=== PATIENT | female | born 1945 | race Caucasian/White ===

== ENCOUNTER 2017-03-28 21:57 | Observation (INO) | payer MEDICARE ==
[~2017-03-28] VITALS: Ht 165.1 cm; Wt 99.1 kg
[~2017-03-28 21:57] MED LIST: CETI10TA22 PO; DULO30CA2 PO; ESOM20CA PO; FLUO40CA9 PO; HYDR-2758 PO; LISI-334 PO; MULT-129 PO; OMEG1CAP30 PO; OMEG1CAP6 PO; OMEP40CA2 PO; OXYC-328 PO; PANT40TA3 PO; RANI300T3 PO; RUTI1TAB PO; SIMV10TA3 PO; SIMV20TA3 PO
[2017-03-28] MEDS ORDERED: GLUCAGON,HUMAN RECOMBINANT 1 MG/ML VIAL. IV ONE (22:30)
[2017-03-28] MEDS ORDERED: fentaNYL PF VIAL 100 MCG/2 ML VIAL IV PRN (22:30)
[2017-03-28] MEDS ORDERED: IV NORMAL SALINE 1000ML BAG 1,000 ML IV SCH (22:39)
[2017-03-28] MEDS ORDERED: ONDANSETRON PF 4 MG/2 ML VIAL. IV PRN (22:45)
[2017-03-28] MEDS ORDERED: hydrALAZINE 20 MG/ML VIAL. IVP PRN (23:00)
--- NOTE | 2017-03-28 23:53 | PHYS DOC ---
Past Medical History Past Medical History: Depression, Fibromyalgia, GERD, Hypertension, Other Additional Past Medical Histor: FOOD BOLUSES, STRICTURE, PE, Heart Murmur Past Surgical History: Cholecystectomy, Hysterectomy Additional Past Surgical Histo: ESPHOGUS DILATION, LT ANKLE, RT ROTATOR CUFF Alcohol Use: None Drug Use: None Adult General Chief Complaint Chief Complaint: FOREIGN BODY HPI HPI Patient is a 71 year old female who presents with esophageal food impaction. The patient states about one hour prior to arrival she ate a hotdog and feels that it is caught in her throat. This has happened many times in the past and always requires endoscopy. She states she actually tried to smash up the hotdog to prevent such an incident. She has been unable to swallow her pain medication or any fluids since this occurred. Her product safety tester is Dr. Hargrove. Review of Systems Review of Systems Constitutional: Denies fever or chills HENT: Denies nasal congestion or sore throat Respiratory: Denies cough or shortness of breath Cardiovascular: Denies chest pain GI: Reports esophageal food bolus, Denies abdominal pain, nausea, vomiting : Denies dysuria or hematuria Musculoskeletal: Denies back pain or joint pain Integument: Denies rash Neurologic: Denies headache Current Medications Current Medications Current Medications Medications (Trade) Dose Ordered Sig/Micheline Start Time Stop Time Status Last Admin Dose Admin Fentanyl Citrate (Fentanyl 2ml Vial) 25 mcg PRN Q15MIN PRN 03/28/17 22:30 03/29/17 22:29 03/28/17 22:51 25 MCG Glucagon (Glucagen) 0.5 mg 1X ONCE 03/28/17 22:30 03/28/17 22:31 DC 03/28/17 22:25 0.5 MG Allergies Allergies Allergies Coded Allergies Type Severity Reaction Last Updated Verified No Known Medication Allergies Allergy Unknown 06/15/16 No Physical Exam Physical Exam Constitutional: Obese, no acute distress, non-toxic appearance. spitting secretions into a basin. HENT: Normocephalic, atraumatic, bilateral external ears normal, oropharynx moist, nose normal. airway patent. Eyes: conjunctiva normal, no discharge. Neck: supple, no stridor. Cardiovascular: RRR, no murmurs, no edema. Lungs & Thorax: LCTAB, no wheezing, no respiratory distress. Abdomen: soft, nontender, nondistended. Skin: Warm, dry, no erythema, no rash. Extremities: No tenderness, no edema. Neurologic: Alert and oriented X 3, no focal deficits noted. Psychologic: Affect normal, judgement normal, mood normal. Current Patient Data Vital Signs Vital Signs Date Time Temp Pulse Resp B/P (MAP) Pulse Ox O2 Delivery O2 Flow Rate FiO2 03/28/17 22:06 97.6 95 16 202/93 (129) 100 Room Air 97.6 EKG EKG [] Radiology/Procedures Radiology/Procedures [] Course & Med Decision Making Course & Med Decision Making Pertinent Labs and Imaging studies reviewed. (See chart for details) The patient presents with esophageal food impaction. She is not tolerating secretions. Gave glucagon with no change. She attempted to drink Coke and immediately regurgitated it. She has never successfully passed food bolus without endoscopy. Consulted with Dr. Cochran of GI who recommends admission to the hospital for endoscopy in the morning. We'll give IV fluids, pain medication , hydralazine for hypertension. Discussed with Dr. Bruner who agrees to admit to observation. The patient is admitted in stable condition. [] Dragon Disclaimer Dragon Disclaimer This electronic medical record was generated, in whole or in part, using a voice recognition dictation system. Departure Departure Impression: Primary Impression: Food impaction of esophagus Additional Impression: Accelerated hypertension Disposition: ADMITTED INPATIENT Condition: STABLE Problem Qualifiers Primary Impression: Food impaction of esophagus Encounter type: initial encounter Qualified Codes: T18.128A - Food in esophagus causing other injury, initial encounter NITZA PENN MD Mar 28, 2017 23:53
[2017-03-29] MEDS: MORPHINE SULFATE 2 MG/ML DISP.SYRIN. IV PRN ×3 (01:47→07:46)
[2017-03-29 03:04] VITALS: BP 167/75
[2017-03-29 03:05] VITALS: BP 167/75
--- NOTE | 2017-03-29 06:23 | HP ---
ADMIT DATE: 03/29/2017 CHIEF COMPLAINT: Food impaction. HISTORY OF PRESENT ILLNESS: The patient is a 71-year-old woman with past medical history of recurrent food impactions, presumably secondary to strictures, as she had previously dilations as well as hypertension and hypercholesterolemia. She presented after eating and having a sensation that food got stuck in her throat. She is able to swallow, however, is from [id number] regurgitating her saliva in large quantities. She denies any fevers or chills. Her blood pressure was slightly elevated, potentially secondary to pain in her left hip. She sustained a fall with hip injury, soft tissue only, about 4 days ago. This is on top of chronic fibromyalgia. She is requesting IV pain medication. PAST MEDICAL HISTORY: GERD; esophageal stricture, status post multiple dilations with history of food impaction; hypertension; depression and fibromyalgia. FAMILY HISTORY: Positive for heart disease and hypertension. No GI issues known. SOCIAL HISTORY: Lives with her . Never smoked. No toxic habits. ALLERGIES: No known drug allergies. MEDICATIONS: MAR reconciled with her home medications. REVIEW OF SYSTEMS: Positive as per HPI for swallowing difficulties as well as left hip pain. Rest of organ system review, however, is negative. PHYSICAL EXAMINATION: VITAL SIGNS: From today show a blood pressure of initially 145/63 with increased stress to 102/93, respiratory rate at 16 and heart rate at mid 90s. She is afebrile. GENERAL: This is a 71-year-old obese woman, alert and oriented, in no acute distress. HEENT: Shows no scleral icterus. NECK: Supple, without any abnormalities palpable. LUNGS: Clear. HEART: Regular rate and rhythm. ABDOMEN: Has positive bowel sounds. Minimal tenderness in the epigastric area. EXTREMITIES: Show no edema. SKIN: Warm, soft and dry, without any rash. LABORATORY DATA: CBC with a WBC of 5.6, hemoglobin 11.1 and platelets of 146,000, which is a bit below her typical baseline in the low 200s. Chemistries with a BUN and creatinine of 21 and 0.9, normal electrolytes, glucose at 124. She has been fluctuating at the upper end of normal up to 152 in the recent past. LFTs within normal limits. IMAGING STUDIES: None. ASSESSMENT AND PLAN: The patient is a 71-year-old woman with esophageal strictures and recurrent food impaction, who now presents with food bolus once again stuck in her esophagus. Dr. Cochran has been consulted and plans for EGD with food bolus removal have been made for in the morning. In the meantime, we will admit the patient to observation. Try and keep her comfortable from her hip pain as well as swallowing issues. She will receive morphine IV p.r.n. Her oral medications will be on hold. We will add hydralazine to control her blood pressure in the meantime. Oral medications will be restarted once food bolus is removed. AGATA HUDSON MD DR: UR/nts JOB#: [id number] / [id number] KATEY Mendoza MD [facility]ITALJewel
[2017-03-29 07:00] VITALS: BP 158/77
[2017-03-29] MEDS ORDERED: IV RINGERS,LACTATED 1000ML 1,000 ML IV SCH (08:04)
[2017-03-29] MEDS ORDERED: PROPOFOL 40 ML IV ONE (08:13)
[2017-03-29] MEDS ORDERED: LIDOCAINE 2% PF Vial for OR 5 ML VIAL. ONE (08:14)
[2017-03-29] MEDS ORDERED: LIDOCAINE 1% 1 ML SYRINGE. ID PRN (08:15)
[2017-03-29] MEDS ORDERED: MIDAZOLAM HCL/PF 2 MG/2 ML VIAL. IV PRN (08:15)
[2017-03-29] MEDS ORDERED: fentaNYL PF VIAL 100 MCG/2 ML VIAL IV PRN ×2 (08:15)
--- NOTE | 2017-03-29 08:25 | PDOC2 ---
CONSULT Date of Consult Date of Consult DATE: 03/29/17 TIME: 08:22 Reason for Consult Reason for Consult: Dysphagia/recurrent meat impaction Past Surgical History Past Surgical History: Cholecystectomy, Hysterectomy Current Problem List Problem List Problems Medical Problems: (1) Accelerated hypertension Status: Acute (2) Food impaction of esophagus Status: Acute Current Medications Current Medications Current Medications Glucagon (Glucagen) 0.5 mg 1X ONCE IV Last administered on 03/28/17 22:25; Start 03/28/17 at 22:30; Stop 03/28/17 at 22:31; Status DC Fentanyl Citrate (Fentanyl 2ml Vial) 25 mcg PRN Q15MIN PRN IV PAIN GREATER THAN 3/10 Last administered on 03/28/17 22:51; Start 03/28/17 at 22:30; Stop at 22:29 Ondansetron HCl (Zofran) 4 mg PRN Q8HRS PRN IV NAUSEA/VOMITING; Start 03/28/17 at 22:45; Stop 03/29/17 at 22:44 Morphine Sulfate 2 mg PRN Q2HR PRN IV SEVERE PAIN Last administered on 07:46; Start 03/28/17 at 22:45; Stop 03/29/17 at 22:44 Sodium Chloride 1,000 ml @ 100 mls/hr Q10H IV Last administered on 03/29/17 01 :47; Start 03/28/17 at 22:39; Stop 03/29/17 at 22:38 Hydralazine HCl (Apresoline) 10 mg PRN Q4HRS PRN IVP ELEVATED BP, SEE COMMENTS ; Start 03/28/17 at 23:00 Midazolam HCl (Versed) 2 mg PRN 1X PRN IV PRIOR TO PROCEDURE; Start 03/29/17 at 08:15; Stop 03/30/17 at 08:14 Fentanyl Citrate (Fentanyl 2ml Vial) 25 mcg PRN Q5MIN PRN IV X 2 DOSES FOR PAIN ; Start 03/29/17 at 08:15; Stop 03/30/17 at 08:14 Fentanyl Citrate (Fentanyl 2ml Vial) 50 mcg PRN Q5MIN PRN IV X 2 DOSES FOR PAIN ; Start 03/29/17 at 08:15; Stop 03/30/17 at 08:14 Ringer's Solution 1,000 ml @ 125 mls/hr Q8H IV Last administered on 03/29/17t 08:06; Start 03/29/17 at 08:04; Stop 03/29/17 at 20:03 Lidocaine HCl 2 ml 1X PRN PRN ID IV START; Start 03/29/17 at 08:15; Stop at 08:14 Propofol 40 ml @ As Directed STK-MED ONCE IV ; Start 03/29/17 at 08:13; Stop 03/29 at 08:14; Status DC Lidocaine HCl (Lidocaine Pf 2% Vial) 5 ml STK-MED ONCE .ROUTE ; Start 03/29/17 at 08:14; Stop 03/29/17 at 08:15; Status DC Active Scripts Active Reported [unknown] Nexium Capsule (Esomeprazole Magnesium) 20 Mg Capsule.dr 20 Mg PO DAILYAC Bioflex Tablet (Rutin/Hesp/Bioflav/C/Herb#196) 1 Each Tablet Unknown Dose PO One Daily For Women 50+ Adv Tb (Multivitamins-Min/Fa/Ginkgo) 1 Each Tablet 1 Each PO Simvastatin 20 Mg Tablet 1 Tab PO QHS Prozac (Fluoxetine Hcl) 40 Mg Capsule 1 Cap PO DAILY Lisinopril 20 Mg Tablet 1 Tab PO Cymbalta (Duloxetine Hcl) 30 Mg Capsule.dr 30 Mg PO BID Percocet 10-325 Mg Tablet (Oxycodone/Acetaminophen) 1 Each Tablet 1 Tab PO Allergies Allergies: Coded Allergies: No Known Medication Allergies (Unverified Allergy, Unknown, 03/29/17) Vitals VITALS Vital Signs Date Time Temp Pulse Resp B/P (MAP) Pulse Ox O2 Delivery O2 Flow Rate FiO2 03/29/17 08:02 Room Air 03/29/17 08:01 97.6 96 20 6 97.6 03/29/17 03:05 167/75 (105) Assessment/Plan Assessment/Plan Dysphagia- with recurrent food impaction. Most likely secondary to Schatzki ring Plan egd with fb removal and possible dilation Full note dictated JOSH HILLS MD Mar 29, 2017 08:24
[2017-03-29] MEDS ORDERED: PROPOFOL 20 ML IV ONE (08:31)
--- NOTE | 2017-03-29 08:38 | PDOC4 ---
Operative Note Operative Note EGD with foreign body removal Meds propofol per anesthesia Pre-op dx Schatzki ring with impacted hot dog S/p extraction hiatal hernia non-erosive gastritis Plan resume diet release when tolerates po JOSH HILLS MD Mar 29, 2017 08:38
[2017-03-29 09:53] LABS: BASO % 0 % (0-3); EOS % 0 % (0-3); HEMATOCRIT 35.1 % (36.0-47.0); HEMOGLOBIN 12.3 g/dL (12.0-15.5); LYMPH # 1.2 x10^3/uL (1.0-4.8); LYMPH % 17 % (24-48); MEAN CORPUSCULAR HEMOGLOBIN 30 pg (25-35); MEAN CORPUSCULAR HGB CONC 35 g/dL (31-37); MEAN CORPUSCULAR VOLUME 86 fL (79-100); MONO % 5 % (0-9); NEUT % 78 % (31-73); PLATELET COUNT 209 x10^3/uL (140-400); RED BLOOD COUNT 4.07 x10^6/uL (3.50-5.40); RED CELL DISTRIBUTION WIDTH 13.6 % (11.5-14.5); WHITE BLOOD COUNT 7.2 x10^3/uL (4.0-11.0)
[2017-03-29 10:10] LABS: CALCIUM 9.1 mg/dL (8.5-10.1); CREATININE 0.8 mg/dL (0.6-1.0); GFR 70.9; POTASSIUM 3.7 mmol/L (3.5-5.1)
--- NOTE | 2017-03-29 10:35 | PDOC ---
PROGRESS NOTES Chief Complaint Chief Complaint recurrent food impaction EGD showed Schatzki ring with impacted hot dog S/p extraction hiatal hernia non-erosive gastritis hypertension depression and fibromyalgia. GERD plan: fu with GI advance diet as per GI cont home meds labs tmr History of Present Illness History of Present Illness ROS: no fever, chills, sob or chest pain EGD today Vitals Vitals Vital Signs Date Time Temp Pulse Resp B/P (MAP) Pulse Ox O2 Delivery O2 Flow Rate FiO2 03/29/17 08:53 85 20 141/62 94 Room Air 03/29/17 08:38 98.1 98.1 Physical Exam General: Alert, Oriented X3, Cooperative Heart: Regular rate, Normal S1, Normal S2 Lungs: Clear Abdomen: Normal bowel sounds, Soft Extremities: No clubbing, No cyanosis Skin: No rashes Labs LABS Laboratory Tests Test 03/29/17 09:46 White Blood Count 7.2 x10^3/uL (4.0-11.0) Red Blood Count 4.07 x10^6/uL (3.50-5.40) Hemoglobin 12.3 g/dL (12.0-15.5) Hematocrit 35.1 % (36.0-47.0) Mean Corpuscular Volume 86 fL (79-100) Mean Corpuscular Hemoglobin 30 pg (25-35) Mean Corpuscular Hemoglobin Concent 35 g/dL (31-37) Red Cell Distribution Width 13.6 % (11.5-14.5) Platelet Count 209 x10^3/uL (140-400) Neutrophils (%) (Auto) 78 % (31-73) Lymphocytes (%) (Auto) 17 % (24-48) Monocytes (%) (Auto) 5 % (0-9) Eosinophils (%) (Auto) 0 % (0-3) Basophils (%) (Auto) 0 % (0-3) Neutrophils # (Auto) 5.7 x10^3uL (1.8-7.7) Lymphocytes # (Auto) 1.2 x10^3/uL (1.0-4.8) Monocytes # (Auto) 0.3 x10^3/uL (0.0-1.1) Eosinophils # (Auto) 0.0 x10^3/uL (0.0-0.7) Basophils # (Auto) 0.0 x10^3/uL (0.0-0.2) Sodium Level 140 mmol/L (136-145) Potassium Level 3.7 mmol/L (3.5-5.1) Chloride Level 103 mmol/L (98-107) Carbon Dioxide Level 27 mmol/L (21-32) Anion Gap 10 (6-14) Blood Urea Nitrogen 19 mg/dL (7-20) Creatinine 0.8 mg/dL (0.6-1.0) Estimated GFR (Cockcroft-Gault) 70.9 Glucose Level 139 mg/dL (70-99) Calcium Level 9.1 mg/dL (8.5-10.1) Assessment and Plan Assessmemt and Plan Problems Medical Problems: (1) Accelerated hypertension Status: Acute (2) Food impaction of esophagus Status: Acute Problems: Comment Review of Relevant I have reviewed the following items pili (where applicable) has been applied. Labs Laboratory Tests Test 03/29/17 09:46 White Blood Count 7.2 x10^3/uL (4.0-11.0) Red Blood Count 4.07 x10^6/uL (3.50-5.40) Hemoglobin 12.3 g/dL (12.0-15.5) Hematocrit 35.1 % (36.0-47.0) Mean Corpuscular Volume 86 fL (79-100) Mean Corpuscular Hemoglobin 30 pg (25-35) Mean Corpuscular Hemoglobin Concent 35 g/dL (31-37) Red Cell Distribution Width 13.6 % (11.5-14.5) Platelet Count 209 x10^3/uL (140-400) Neutrophils (%) (Auto) 78 % (31-73) Lymphocytes (%) (Auto) 17 % (24-48) Monocytes (%) (Auto) 5 % (0-9) Eosinophils (%) (Auto) 0 % (0-3) Basophils (%) (Auto) 0 % (0-3) Neutrophils # (Auto) 5.7 x10^3uL (1.8-7.7) Lymphocytes # (Auto) 1.2 x10^3/uL (1.0-4.8) Monocytes # (Auto) 0.3 x10^3/uL (0.0-1.1) Eosinophils # (Auto) 0.0 x10^3/uL (0.0-0.7) Basophils # (Auto) 0.0 x10^3/uL (0.0-0.2) Sodium Level 140 mmol/L (136-145) Potassium Level 3.7 mmol/L (3.5-5.1) Chloride Level 103 mmol/L (98-107) Carbon Dioxide Level 27 mmol/L (21-32) Anion Gap 10 (6-14) Blood Urea Nitrogen 19 mg/dL (7-20) Creatinine 0.8 mg/dL (0.6-1.0) Estimated GFR (Cockcroft-Gault) 70.9 Glucose Level 139 mg/dL (70-99) Calcium Level 9.1 mg/dL (8.5-10.1) Laboratory Tests Test 03/29/17 09:46 White Blood Count 7.2 x10^3/uL (4.0-11.0) Red Blood Count 4.07 x10^6/uL (3.50-5.40) Hemoglobin 12.3 g/dL (12.0-15.5) Hematocrit 35.1 % (36.0-47.0) Mean Corpuscular Volume 86 fL (79-100) Mean Corpuscular Hemoglobin 30 pg (25-35) Mean Corpuscular Hemoglobin Concent 35 g/dL (31-37) Red Cell Distribution Width 13.6 % (11.5-14.5) Platelet Count 209 x10^3/uL (140-400) Neutrophils (%) (Auto) 78 % (31-73) Lymphocytes (%) (Auto) 17 % (24-48) Monocytes (%) (Auto) 5 % (0-9) Eosinophils (%) (Auto) 0 % (0-3) Basophils (%) (Auto) 0 % (0-3) Neutrophils # (Auto) 5.7 x10^3uL (1.8-7.7) Lymphocytes # (Auto) 1.2 x10^3/uL (1.0-4.8) Monocytes # (Auto) 0.3 x10^3/uL (0.0-1.1) Eosinophils # (Auto) 0.0 x10^3/uL (0.0-0.7) Basophils # (Auto) 0.0 x10^3/uL (0.0-0.2) Sodium Level 140 mmol/L (136-145) Potassium Level 3.7 mmol/L (3.5-5.1) Chloride Level 103 mmol/L (98-107) Carbon Dioxide Level 27 mmol/L (21-32) Anion Gap 10 (6-14) Blood Urea Nitrogen 19 mg/dL (7-20) Creatinine 0.8 mg/dL (0.6-1.0) Estimated GFR (Cockcroft-Gault) 70.9 Glucose Level 139 mg/dL (70-99) Calcium Level 9.1 mg/dL (8.5-10.1) Medications Current Medications Glucagon (Glucagen) 0.5 mg 1X ONCE IV Last administered on 03/28/17 22:25; Start 03/28/17 at 22:30; Stop 03/28/17 at 22:31; Status DC Fentanyl Citrate (Fentanyl 2ml Vial) 25 mcg PRN Q15MIN PRN IV PAIN GREATER THAN 3/10 Last administered on 03/28/17 22:51; Start 03/28/17 at 22:30; Stop at 22:29 Ondansetron HCl (Zofran) 4 mg PRN Q8HRS PRN IV NAUSEA/VOMITING; Start 03/28/17 at 22:45; Stop 03/29/17 at 22:44 Morphine Sulfate 2 mg PRN Q2HR PRN IV SEVERE PAIN Last administered on 07:46; Start 03/28/17 at 22:45; Stop 03/29/17 at 22:44 Sodium Chloride 1,000 ml @ 100 mls/hr Q10H IV Last administered on 03/29/17 01 :47; Start 03/28/17 at 22:39; Stop 03/29/17 at 22:38 Hydralazine HCl (Apresoline) 10 mg PRN Q4HRS PRN IVP ELEVATED BP, SEE COMMENTS ; Start 03/28/17 at 23:00 Midazolam HCl (Versed) 2 mg PRN 1X PRN IV PRIOR TO PROCEDURE; Start 03/29/17 at 08:15; Stop 03/30/17 at 08:14 Fentanyl Citrate (Fentanyl 2ml Vial) 25 mcg PRN Q5MIN PRN IV X 2 DOSES FOR PAIN ; Start 03/29/17 at 08:15; Stop 03/30/17 at 08:14 Fentanyl Citrate (Fentanyl 2ml Vial) 50 mcg PRN Q5MIN PRN IV X 2 DOSES FOR PAIN ; Start 03/29/17 at 08:15; Stop 03/30/17 at 08:14 Ringer's Solution 1,000 ml @ 125 mls/hr Q8H IV Last administered on 03/29/17t 08:06; Start 03/29/17 at 08:04; Stop 03/29/17 at 20:03 Lidocaine HCl 2 ml 1X PRN PRN ID IV START; Start 03/29/17 at 08:15; Stop at 08:14 Propofol 40 ml @ As Directed STK-MED ONCE IV ; Start 03/29/17 at 08:13; Stop 03/29 at 08:14; Status DC Lidocaine HCl (Lidocaine Pf 2% Vial) 5 ml STK-MED ONCE .ROUTE ; Start 03/29/17 at 08:14; Stop 03/29/17 at 08:15; Status DC Propofol 20 ml @ As Directed STK-MED ONCE IV ; Start 03/29/17 at 08:31; Stop 03/29 at 08:32; Status DC Active Scripts Active Reported [unknown] Nexium Capsule (Esomeprazole Magnesium) 20 Mg Capsule.dr 20 Mg PO DAILYAC Bioflex Tablet (Rutin/Hesp/Bioflav/C/Herb#196) 1 Each Tablet Unknown Dose PO One Daily For Women 50+ Adv Tb (Multivitamins-Min/Fa/Ginkgo) 1 Each Tablet 1 Each PO Simvastatin 20 Mg Tablet 1 Tab PO QHS Prozac (Fluoxetine Hcl) 40 Mg Capsule 1 Cap PO DAILY Lisinopril 20 Mg Tablet 1 Tab PO Cymbalta (Duloxetine Hcl) 30 Mg Capsule. 30 Mg PO BID Percocet 10-325 Mg Tablet (Oxycodone/Acetaminophen) 1 Each Tablet 1 Tab PO Vitals/I & O Vital Sign - Last 24 Hours 03/28/17 03/28/17 03/29/17 03/29/17 22:06 22:51 00:45 01:47 Temp 97.6 97.6 Pulse 95 Resp 16 20 17 B/P (MAP) 202/93 (129) Pulse Ox 100 96 96 O2 Delivery Room Air Room Air Room Air Room Air 03/29/17 03/29/17 03/29/17 03/29/17 03:04 03:05 03:45 04:15 Temp 98.6 98.6 98.6 98.6 Pulse 93 93 Resp 18 18 16 15 B/P (MAP) 167/75 (105) 167/75 (105) Pulse Ox 94 94 94 94 O2 Delivery Room Air Room Air Room Air Room Air 03/29/17 03/29/17 03/29/17 03/29/17 07:00 07:45 07:46 08:01 Temp 97.5 97.6 97.5 97.6 Pulse 95 96 Resp 20 20 B/P (MAP) 158/77 (104) Pulse Ox 96 6 O2 Delivery Room Air Room Air Room Air 03/29/17 03/29/17 03/29/17 08:02 08:38 08:53 Temp 98.1 98.1 Pulse 96 85 Resp 20 20 B/P (MAP) 138/65 141/62 Pulse Ox 94 O2 Delivery Room Air Room Air Room Air Intake and Output 03/29/17 03/29/17 03/30/17 15:00 23:00 07:00 Intake Total 500 ml Balance 500 ml ALEXANDRIA NEW MD Mar 29, 2017 10:35
[2017-03-29] MEDS ORDERED: MORPHINE SULFATE 2 MG/ML DISP.SYRIN. IV PRN (10:45)
[2017-03-29] MEDS ORDERED: traMADol 50 MG TABLET PO PRN (10:45)
[2017-03-29] MEDS ORDERED: ONDANSETRON PF 4 MG/2 ML VIAL. IV PRN (10:45)
[2017-03-29] MEDS ORDERED: ACETAMINOPHEN 325 MG TABLET. PO PRN (10:45)
[2017-03-29] MEDS ORDERED: oxyCODONE/APAP 10/325 1 TAB TABLET PO PRN (10:45)
[2017-03-29] MEDS ORDERED: DOCUSATE SODIUM 100 MG CAPSULE. PO PRN (10:45)
[2017-03-29] MEDS ORDERED: hydrALAZINE 20 MG/ML VIAL. IVP PRN (10:45)
[2017-03-29 11:00] VITALS: BP 189/85
--- NOTE | 2017-03-29 11:06 | PDOC3 ---
Discharge Summary [facility] Date of Admission: Mar 28, 2017 Discharge Date: Mar 29, 2017 Admitting Diagnosis recurrent food impaction EGD showed Schatzki ring with impacted hot dog S/p extraction hiatal hernia non-erosive gastritis hypertension depression and fibromyalgia. GERD Problems: Final Diagnosis CONSULTS GI Procedures egd Brief Hospital Course Ms. Cifuentes is a 71 old f, WITH H/o food impaction, came here for dysphagia, she ate some hot dog and then cannot swallow anything down. EGD showed EGD Schatzki ring with impacted hot dog S/p extraction, hiatal hernia, non-erosive gastritis. She eats well post EGD. ADVANCE diet. ok to dc as per gi dc time 35min dc home , fu with GI, may need esophagous dilation. Patient History: Patient reports no known family medical history. Problems: Disposition home CONDITION AT DISCHARGE: Improved Diet gi soft Scheduled Duloxetine Hcl (Cymbalta), 30 MG PO BID, (Reported) Esomeprazole Magnesium (Nexium Capsule), 20 MG PO DAILYAC, (Reported) Fluoxetine Hcl (Prozac), 1 CAP PO DAILY, (Reported) Simvastatin (Simvastatin), 1 TAB PO QHS, (Reported) Miscellaneous Medications Lisinopril (Lisinopril), 1 TAB PO, (Reported) Multivitamins-Min/Fa/Ginkgo (One Daily For Women 50+ Adv Tb), 1 EACH PO, ( Reported) Oxycodone/Apap 10-325 (Percocet 10-325 Mg Tablet), 1 TAB PO, (Reported) Rutin/Hesp/Bioflav/C/Herb#196 (Bioflex Tablet), Unknown Dose PO, (Reported) [unknown], (Reported) Follow Up gi in 2 weeks ALEXANDRIA NEW MD Mar 29, 2017 11:06
[2017-03-29] MEDS ORDERED: DULoxetine HCL 30 MG CAPSULE.DR PO SCH (11:30)
[2017-03-29] MEDS ORDERED: LISINOPRIL 20 MG TABLET PO SCH (11:30)
[2017-03-29] MEDS ORDERED: PANTOPRAZOLE 40 MG TABLET.DR. PO SCH (11:30)
[2017-03-29] MEDS ORDERED: FLUoxetine HCL 20 MG CAPSULE PO SCH (11:30)
--- NOTE | 2017-03-29 12:01 | CONS ---
DATE OF CONSULTATION: 03/29/2017 REASON FOR CONSULTATION: Dysphagia, meat impaction. HISTORY OF PRESENT ILLNESS: This is a 71-year-old female with past medical history significant for esophageal stricture/Schatzki's ring, reflux, constipation, fibromyalgia, hypertension, osteoarthrosis, status post partial hysterectomy, cholecystectomy, right rotator cuff repair and left ankle fracture, seen with recurrent meat impaction which occurred yesterday with most likely a hotdog per the patient's recollection. She is edentulous and has difficulties with chewing of her food. As she is unable to handle her oral secretions, she was then brought to the hospital here and is here for meat disimpaction and possible dilatation. PAST MEDICAL HISTORY: Esophageal stricture, GERD, Schatzki's ring, fibromyalgia, hypertension, arthritis, depression, partial hysterectomy, cholecystectomy, rotator cuff repair and left ankle fracture. MEDICATIONS: Presently include Cymbalta, Nexium, Prozac, lisinopril, multivitamin, oxycodone, and simvastatin. ALLERGIES: None. FAMILY AND SOCIAL HISTORY: She is retired, does not smoke or drink. REVIEW OF SYSTEMS: Per records. PHYSICAL EXAMINATION: GENERAL: Reveals well-nourished, well-developed female. VITAL SIGNS: Temperature is 97.6, pulse 96, respiratory rate is 20, blood pressure is 167/75. HEENT: Reveals normocephalic and atraumatic head. Pupils and extraocular movements not tested. Sclerae anicteric. NECK: Supple. LUNGS: Clear. CARDIOVASCULAR: Reveals S1, S2 without S3, S4 or appreciable murmur. No crepitus on palpation of the chest. ABDOMEN: Soft abdomen, normal bowel sounds, without appreciable hepatosplenomegaly, with multiple surgical incisions. EXTREMITIES: Reveals no cyanosis, clubbing, edema. LABORATORY STUDIES: None. IMPRESSION: Dysphagia, most likely secondary to recurrent impaction. PLAN: EGD with possible biopsy, dilatation of foreign body and removal of it. I discussed with the patient including risk of hemorrhage or perforation. She is willing to proceed at this time. I would like to thank Dr. Bruner for allowing us to consult and participate in this patient's care. JOSH HILLS MD DR: CINTHIA/jose JOB#: [id number] / [id number] AGATA Harris MD
[2017-03-29] MEDS ORDERED: SIMVASTATIN 20 MG TABLET PO SCH (21:00)
== END 2017-03-29 13:58 | disposition home or self-care (01) ==
LOC: ER 21:57 → 5 SOUTH 22:35
PROVIDERS: ADMIT Internal Medicine Hematology & Oncology; ATTEND Internal Medicine Hematology & Oncology
DX: T18.128A Food in esophagus causing other injury, initial encounter (principal); K22.2 Esophageal obstruction; K21.9 Gastro-esophageal reflux disease without esophagitis; M79.7 Fibromyalgia; I10 Essential (primary) hypertension; M19.90 Unspecified osteoarthritis, unspecified site; F32.9 Major depressive disorder, single episode, unspecified; K44.9 Diaphragmatic hernia without obstruction or gangrene; K29.70 Gastritis, unspecified, without bleeding; E78.00 Pure hypercholesterolemia, unspecified; X58.XXXA Exposure to other specified factors, initial encounter; Y93.89 Activity, other specified; Y99.8 Other external cause status; Y92.89 Other specified places as the place of occurrence of the external cause; Z82.49 Family history of ischemic heart disease and other diseases of the circulatory system; Z90.710 Acquired absence of both cervix and uterus
CPT/HCPCS: 36415; 43247; 80048; 85025; 96374; 96375; 96376; 99285; G0378; J1610; J2270; J2704; J3010; J7030; G0379; J7120; J2001

== ENCOUNTER 2017-04-21 07:22 | Emergency (ER) | payer MEDICARE ==
--- NOTE | 2017-04-21 07:43 | PHYS DOC ---
Past Medical History Past Medical History: Depression, Fibromyalgia, GERD, Hypertension, Other Additional Past Medical Histor: FOOD BOLUSES, STRICTURE, PE, Heart Murmur Past Surgical History: Cholecystectomy, Hysterectomy Additional Past Surgical Histo: ESPHOGUS DILATION, LT ANKLE, RT ROTATOR CUFF Alcohol Use: None Drug Use: None Adult General Chief Complaint Chief Complaint: DIFFICULTY SWALLOWING HPI HPI Patient is a 71 year old female with history of hypertension, fibromyalgia, sciatic nerve pain, depression, esophageal strictures, who presents today with a football nose. Patient states she took 2 oxycodone tablets this morning for her sciatic nerve pain and she feels they are stuck in her throat. She states she cannot swallow anything including her own saliva. She states she has hx of esophageal strictures and food boluses, she states she usually has to have endoscopies for her food bolus and she is requesting a GI doctor to come and remove the food bolus. She states she prefers not to be given glucagon because it does not work for her. She is spitting in a bucket. Review of Systems Review of Systems Constitutional: Denies fever or chills [] Eyes: Denies change in visual acuity, redness, or eye pain [] HENT: Denies nasal congestion or sore throat [] Respiratory: Denies cough or shortness of breath [] Cardiovascular: No additional information not addressed in HPI [] GI: food bolus : Denies dysuria or hematuria [] Musculoskeletal: Denies back pain or joint pain [] Integument: Denies rash or skin lesions [] Neurologic: Denies headache, focal weakness or sensory changes [] Current Medications Current Medications Current Medications Medications (Trade) Dose Ordered Sig/[facility] Start Time Stop Time Status Last Admin Dose Admin Fentanyl Citrate (Fentanyl 2ml Vial) 50 mcg 1X ONCE 04/21/17 08:15 04/21/17 08:16 DC 04/21/17 08:11 50 MCG Glucagon (Glucagen) 0.5 mg 1X ONCE 04/21/17 08:30 04/21/17 08:31 DC 04/21/17 08:39 0.5 MG Allergies Allergies Allergies Coded Allergies Type Severity Reaction Last Updated Verified No Known Medication Allergies Allergy Unknown 03/29/17 No Physical Exam Physical Exam Constitutional: Well developed, well nourished, no acute distress, non-toxic appearance. [] HENT: Normocephalic, atraumatic, bilateral external ears normal, oropharynx moist, no oral exudates, nose normal. Airway is patent Eyes: PERRLA, EOMI, conjunctiva normal, no discharge. [] Neck: Normal range of motion, no tenderness, supple, no stridor. [] Cardiovascular:Heart rate regular rhythm, no murmur [] Lungs & Thorax: Bilateral breath sounds clear to auscultation [] Abdomen: Bowel sounds normal, soft, no tenderness, no masses, no pulsatile masses. [] Skin: Warm, dry, no erythema, no rash. [] Back: No tenderness, no CVA tenderness. [] Extremities: No tenderness, no cyanosis, no clubbing, ROM intact, no edema. [] Neurologic: Alert and oriented X 3, normal motor function, normal sensory function, no focal deficits noted. [] Psychologic: Affect normal, judgement normal, mood normal. [] Current Patient Data Vital Signs Vital Signs Date Time Temp Pulse Resp B/P (MAP) Pulse Ox O2 Delivery O2 Flow Rate FiO2 04/21/17 08:12 92 16 162/61 (94) 95 Room Air 04/21/17 07:33 98.4 98.4 Lab Values Laboratory Tests Test 04/21/17 08:07 White Blood Count 3.8 x10^3/uL (4.0-11.0) L Red Blood Count 3.73 x10^6/uL (3.50-5.40) Hemoglobin 11.1 g/dL (12.0-15.5) L Hematocrit 33.4 % (36.0-47.0) L Mean Corpuscular Volume 89 fL (79-100) Mean Corpuscular Hemoglobin 30 pg (25-35) Mean Corpuscular Hemoglobin Concent 33 g/dL (31-37) Red Cell Distribution Width 13.1 % (11.5-14.5) Platelet Count 184 x10^3/uL (140-400) Neutrophils (%) (Auto) 75 % (31-73) H Lymphocytes (%) (Auto) 14 % (24-48) L Monocytes (%) (Auto) 8 % (0-9) Eosinophils (%) (Auto) 2 % (0-3) Basophils (%) (Auto) 0 % (0-3) Neutrophils # (Auto) 2.9 x10^3uL (1.8-7.7) Lymphocytes # (Auto) 0.6 x10^3/uL (1.0-4.8) L Monocytes # (Auto) 0.3 x10^3/uL (0.0-1.1) Eosinophils # (Auto) 0.1 x10^3/uL (0.0-0.7) Basophils # (Auto) 0.0 x10^3/uL (0.0-0.2) Prothrombin Time 12.5 SEC (11.7-14.0) Prothrombin Time INR 1.0 (0.8-1.1) PTT 28 SEC (24-38) Sodium Level 138 mmol/L (136-145) Potassium Level 4.4 mmol/L (3.5-5.1) Chloride Level 103 mmol/L (98-107) Carbon Dioxide Level 28 mmol/L (21-32) Anion Gap 7 (6-14) Blood Urea Nitrogen 16 mg/dL (7-20) Creatinine 1.0 mg/dL (0.6-1.0) Estimated GFR (Cockcroft-Gault) 54.8 Glucose Level 161 mg/dL (70-99) H Calcium Level 8.9 mg/dL (8.5-10.1) Laboratory Tests 04/21/17 08:07 Laboratory Tests 04/21/17 08:07 EKG EKG [] Radiology/Procedures Radiology/Procedures [] Course & Med Decision Making Course & Med Decision Making Pertinent Labs and Imaging studies reviewed. (See chart for details) This is a 71-year-old female patient presenting today complaining of 2 tablets of oxycodone stuck in her throat at 7 am. Patient has history of esophageal strictures with fluid boluses. She states she typically has to have an endoscopy. She requesting GI doctor to come and do an endoscopy. She is refusing glucagon stating it is not going to work for her. She is spitting in a bucket. She states last time she was kept in the Ed for hours before GI did an endoscopy and this time she does not want to be kept in the Ed for hours. 07:[address] Smith GI doctor. He requested patient to be given Water to drink to see if it dissolves the pill. He states he will come back to the ED after a couple hours. I did request patient to be admitted and he can follow-up with patient as an admit to cut our door to admission times. He states patient does not need to be admitted he will come to the Ed after a couple hours. Gave patient information from Dr. Almodovar. She accepted to take Glucagon and sips of water. Later patient stated she wants to be discharged. 09:12 We started to get her paperwork ready she stated the water came back up and she does not want to leave she wants to be seen by GI for endoscopy. 09:[address] Almodovar. He states he called the GI team and patient will be scoped. Patient was transferred to GI lab for endoscopy. Dragon Disclaimer Dragon Disclaimer This electronic medical record was generated, in whole or in part, using a voice recognition dictation system. Departure Departure Impression: Primary Impression: Food impaction of esophagus Disposition: 01 HOME, SELF-CARE Condition: STABLE Referrals: KATEY PAUL MD (PCP) Problem Qualifiers Primary Impression: Food impaction of esophagus Encounter type: initial encounter Qualified Codes: T18.128A - Food in esophagus causing other injury, initial encounter LASHAUN RICHARDSON [employer]OT[employer]IC LABORATORY TECHNICIAN Apr 21, 2017 07:43
[2017-04-21] MEDS ORDERED: fentaNYL PF VIAL 100 MCG/2 ML VIAL IV ONE ×4 (08:15→10:17)
[2017-04-21] MEDS ORDERED: GLUCAGON,HUMAN RECOMBINANT 1 MG/ML VIAL. IM ONE (08:30)
[2017-04-21 08:32] LABS: BASO % 0 % (0-3); EOS % 2 % (0-3); HEMATOCRIT 33.4 % (36.0-47.0); HEMOGLOBIN 11.1 g/dL (12.0-15.5); LYMPH # 0.6 x10^3/uL (1.0-4.8); LYMPH % 14 % (24-48); MEAN CORPUSCULAR HEMOGLOBIN 30 pg (25-35); MEAN CORPUSCULAR HGB CONC 33 g/dL (31-37); MEAN CORPUSCULAR VOLUME 89 fL (79-100); MONO % 8 % (0-9); NEUT % 75 % (31-73); PLATELET COUNT 184 x10^3/uL (140-400); RED BLOOD COUNT 3.73 x10^6/uL (3.50-5.40); RED CELL DISTRIBUTION WIDTH 13.1 % (11.5-14.5); WHITE BLOOD COUNT 3.8 x10^3/uL (4.0-11.0)
[2017-04-21 08:36] LABS: CALCIUM 8.9 mg/dL (8.5-10.1); GFR 54.8; POTASSIUM 4.4 mmol/L (3.5-5.1)
[2017-04-21 08:48] LABS: PROTHROMBIN TIME PATIENT 12.5 SEC (11.7-14.0)
[2017-04-21] MEDS ORDERED: MIDAZOLAM HCL/PF 5 MG/5 ML VIAL. ONE (09:38)
[2017-04-21] MEDS ORDERED: fentaNYL PF VIAL 100 MCG/2 ML VIAL ONE (09:39)
[2017-04-21] MEDS ORDERED: diphenhydrAMINE 50 MG/ML VIAL ONE (09:47)
[2017-04-21] MEDS ORDERED: MIDAZOLAM HCL/PF 5 MG/5 ML VIAL. IV ONE ×4 (10:07→10:17)
[2017-04-21] MEDS ORDERED: diphenhydrAMINE 50 MG/ML VIAL IV ONE ×2 (10:07→10:13)
--- NOTE | 2017-04-21 10:08 | PDOC2 ---
GI CONSULT HPI: HPI: 71 WF with history of esophageal stricture, prior food impaction and two prior EGDs within last 2 months. Now with some meat stuck last night and then pills stuck this morning. Unable to swallow liquid. Mild chest discomfort. No fever , cough, bleeding etc PMH: PMH: HTN GERD with stricture fibromyalgia cholecystectomy hysterectomy ROS: GEN: Denies fevers, chills, sweats HEENT: Denies blurred vision, sore throat CV: Denies chest pain RESP: Denies shortness of air, cough GI: Per HPI : Denies hematuria, dysuria ENDO: Denies weight changes NEURO: Denies confusion, dizziness MSK: Denies weakness, joint pain/swelling SKIN: Denies jaundice, pruritus Vitals: Vitals: Vital Signs Date Time Temp Pulse Resp B/P (MAP) Pulse Ox O2 Delivery O2 Flow Rate FiO2 04/21/17 09:31 95 18 141/62 (88) 97 Room Air 04/21/17 07:33 98.4 98.4 Labs: Labs: Laboratory Tests Test 04/21/17 08:07 White Blood Count 3.8 x10^3/uL (4.0-11.0) Red Blood Count 3.73 x10^6/uL (3.50-5.40) Hemoglobin 11.1 g/dL (12.0-15.5) Hematocrit 33.4 % (36.0-47.0) Mean Corpuscular Volume 89 fL (79-100) Mean Corpuscular Hemoglobin 30 pg (25-35) Mean Corpuscular Hemoglobin Concent 33 g/dL (31-37) Red Cell Distribution Width 13.1 % (11.5-14.5) Platelet Count 184 x10^3/uL (140-400) Neutrophils (%) (Auto) 75 % (31-73) Lymphocytes (%) (Auto) 14 % (24-48) Monocytes (%) (Auto) 8 % (0-9) Eosinophils (%) (Auto) 2 % (0-3) Basophils (%) (Auto) 0 % (0-3) Neutrophils # (Auto) 2.9 x10^3uL (1.8-7.7) Lymphocytes # (Auto) 0.6 x10^3/uL (1.0-4.8) Monocytes # (Auto) 0.3 x10^3/uL (0.0-1.1) Eosinophils # (Auto) 0.1 x10^3/uL (0.0-0.7) Basophils # (Auto) 0.0 x10^3/uL (0.0-0.2) Prothrombin Time 12.5 SEC (11.7-14.0) Prothromb Time International Ratio 1.0 (0.8-1.1) Activated Partial Thromboplast Time 28 SEC (24-38) Sodium Level 138 mmol/L (136-145) Potassium Level 4.4 mmol/L (3.5-5.1) Chloride Level 103 mmol/L (98-107) Carbon Dioxide Level 28 mmol/L (21-32) Anion Gap 7 (6-14) Blood Urea Nitrogen 16 mg/dL (7-20) Creatinine 1.0 mg/dL (0.6-1.0) Estimated GFR (Cockcroft-Gault) 54.8 Glucose Level 161 mg/dL (70-99) Calcium Level 8.9 mg/dL (8.5-10.1) Allergies: Coded Allergies: No Known Medication Allergies (Unverified Allergy, Unknown, 03/29/17) Medications: Current Medications Medications (Trade) Dose Ordered Sig/[facility] Route PRN Reason Start Time Stop Time Status Last Admin Dose Admin Fentanyl Citrate (Fentanyl 2ml Vial) 50 mcg 1X ONCE IV 04/21/17 08:15 04/21/17 08:16 DC 04/21/17 08:11 Glucagon (Glucagen) 0.5 mg 1X ONCE IM 04/21/17 08:30 04/21/17 08:31 DC 04/21/17 08:39 PE: GEN: NAD HEENT: Atraumatic, PERRLA- edenulous LUNGS: CTAB HEART: RRR, no murmurs ABD: NABS, S/ND/NT, no masses EXTREMITY: No edema SKIN: No rashes, no jaundice NEURO/PSYCH: A & O 3 A/P: A/P: dysphagia with food and pill obstruction this AM- similar to prior episodes- known to have GERD with Schatzki's ring stricture- last food bolus removal was 03/29/2017 Plan- EGD today pay more attention to food (soft diet- no meat or mechanically ground) , chewing, pills etc to avoid obstruction BRANDI ELIZONDO MD Apr 21, 2017 10:08
[2017-04-21 10:51] VITALS: BP 111/74
[2017-04-21] MEDS ORDERED: IV RINGERS,LACTATED 1000ML 1,000 ML IV ONE (11:30)
== END 2017-04-21 09:28 | disposition home or self-care (01) ==
LOC: ER 07:22
DX: T18.128A Food in esophagus causing other injury, initial encounter (principal); F32.9 Major depressive disorder, single episode, unspecified; M79.7 Fibromyalgia; K21.9 Gastro-esophageal reflux disease without esophagitis; I10 Essential (primary) hypertension; Z90.710 Acquired absence of both cervix and uterus; Z90.49 Acquired absence of other specified parts of digestive tract; X58.XXXA Exposure to other specified factors, initial encounter; Y93.89 Activity, other specified; Y92.89 Other specified places as the place of occurrence of the external cause; Y99.8 Other external cause status
CPT/HCPCS: 36415; 80048; 85025; 85610; 85730; 96361; 96372; 96374; 96375; 96376; 99284; J1200; J1610; J2250; J3010; J7120

== ENCOUNTER 2017-06-23 11:48 | Emergency (ER) | payer MEDICARE ==
[~2017-06-23] VITALS: Ht 165.1 cm; Wt 97.1 kg
--- NOTE | 2017-06-23 12:26 | PHYS DOC ---
Past Medical History Past Medical History: Depression, Fibromyalgia, GERD, Hypertension, Other Additional Past Medical Histor: FOOD BOLUSES, STRICTURE, PE, Heart Murmur Past Surgical History: Cholecystectomy, Hysterectomy Additional Past Surgical Histo: ESPHOGUS DILATION, LT ANKLE, RT ROTATOR CUFF Alcohol Use: None Drug Use: None Adult General Chief Complaint Chief Complaint: CHEST PAIN HPI HPI Patient is a 72 year old female with history of fibromyalgia, hypertension, depression, who presents today complaining of a sharp 8 out of 10 bilateral upper chest pain intermittent in nature worse on deep breaths and exertion with dizziness and nausea that began this morning when she was walking in [employer]. Patient states her pain is not as bad laying down in bed. Patient states she is under a lot of stress, she states her is admitted on the second floor with dialysis issues. Review of Systems Review of Systems Constitutional: Denies fever or chills [] Eyes: Denies change in visual acuity, redness, or eye pain [] HENT: Denies nasal congestion or sore throat [] Respiratory: Denies cough or shortness of breath [] Cardiovascular: Chest pain GI: Reports nausea with no vomiting. Denies abdominal pain, bloody stools or diarrhea [] : Denies dysuria or hematuria [] Musculoskeletal: Denies back pain or joint pain [] Integument: Denies rash or skin lesions [] Neurologic: Denies headache, focal weakness or sensory changes [] All other systems were reviewed and found to be within normal limits, except as documented in this note. Current Medications Current Medications Current Medications Medications (Trade) Dose Ordered Sig/[facility] Start Time Stop Time Status Last Admin Dose Admin Aspirin (Melodie Aspirin) 325 mg 1X ONCE 06/23/17 12:30 06/23/17 12:31 DC 06/23/17 12:33 325 MG Famotidine (Pepcid Vial) 20 mg 1X ONCE 06/23/17 12:30 06/23/17 12:31 DC 06/23/17 12:34 20 MG Ondansetron HCl (Zofran) 4 mg 1X ONCE 06/23/17 13:45 06/23/17 13:46 DC 06/23/17 12:34 4 MG Allergies Allergies Allergies Coded Allergies Type Severity Reaction Last Updated Verified No Known Medication Allergies Allergy Unknown 05/03/17 No Physical Exam Physical Exam Constitutional: Well developed, well nourished, no acute distress, non-toxic appearance. [] HENT: Normocephalic, atraumatic, bilateral external ears normal, oropharynx moist, no oral exudates, nose normal. [] Eyes: PERRLA, EOMI, conjunctiva normal, no discharge. [] Neck: Normal range of motion, no tenderness, supple, no stridor. [] Cardiovascular:Heart rate regular rhythm, no murmur [] Lungs & Thorax: Bilateral breath sounds clear to auscultation [] Abdomen: Bowel sounds normal, soft, no tenderness, no masses, no pulsatile masses. [] Skin: Warm, dry, no erythema, no rash. [] Back: No tenderness, no CVA tenderness. [] Extremities: No tenderness, no cyanosis, no clubbing, ROM intact, no edema. [] Neurologic: Alert and oriented X 3, normal motor function, normal sensory function, no focal deficits noted. [] Psychologic: Affect normal, judgement normal, mood normal. [] Current Patient Data Vital Signs Vital Signs Date Time Temp Pulse Resp B/P (MAP) Pulse Ox O2 Delivery O2 Flow Rate FiO2 06/23/17 14:10 104 18 186/90 (122) 100 06/23/17 12:05 98.0 Room Air 98.0 Lab Values Laboratory Tests Test 06/23/17 12:20 06/23/17 13:10 White Blood Count 5.8 x10^3/uL (4.0-11.0) Red Blood Count 4.39 x10^6/uL (3.50-5.40) Hemoglobin 13.0 g/dL (12.0-15.5) Hematocrit 38.8 % (36.0-47.0) Mean Corpuscular Volume 89 fL (79-100) Mean Corpuscular Hemoglobin 30 pg (25-35) Mean Corpuscular Hemoglobin Concent 33 g/dL (31-37) Red Cell Distribution Width 13.5 % (11.5-14.5) Platelet Count 223 x10^3/uL (140-400) Neutrophils (%) (Auto) 70 % (31-73) Lymphocytes (%) (Auto) 23 % (24-48) L Monocytes (%) (Auto) 6 % (0-9) Eosinophils (%) (Auto) 1 % (0-3) Basophils (%) (Auto) 0 % (0-3) Neutrophils # (Auto) 4.1 x10^3uL (1.8-7.7) Lymphocytes # (Auto) 1.4 x10^3/uL (1.0-4.8) Monocytes # (Auto) 0.4 x10^3/uL (0.0-1.1) Eosinophils # (Auto) 0.0 x10^3/uL (0.0-0.7) Basophils # (Auto) 0.0 x10^3/uL (0.0-0.2) Prothrombin Time 12.1 SEC (11.7-14.0) Prothrombin Time INR 1.0 (0.8-1.1) Sodium Level 141 mmol/L (136-145) Potassium Level 4.3 mmol/L (3.5-5.1) Chloride Level 102 mmol/L (98-107) Carbon Dioxide Level 28 mmol/L (21-32) Anion Gap 11 (6-14) Blood Urea Nitrogen 22 mg/dL (7-20) H Creatinine 1.0 mg/dL (0.6-1.0) Estimated GFR (Cockcroft-Gault) 54.7 BUN/Creatinine Ratio 22 (6-20) H Glucose Level 150 mg/dL (70-99) H Calcium Level 9.6 mg/dL (8.5-10.1) Magnesium Level 1.9 mg/dL (1.8-2.4) Total Bilirubin 0.3 mg/dL (0.2-1.0) Aspartate Amino Transferase (AST) 21 U/L (15-37) Alanine Aminotransferase (ALT) 20 U/L (14-59) Alkaline Phosphatase 100 U/L (46-116) Creatine Kinase 154 U/L (26-192) Creatine Kinase MB (Mass) 0.9 ng/mL (0.0-3.6) Creatine Kinase MB Relative Index 0.6 % (0-4) Troponin I Quantitative < 0.017 ng/mL (0.000-0.055) SN-Myb-L-Type Natriuretic Peptide 135 pg/mL (0-124) H Total Protein 7.7 g/dL (6.4-8.2) Albumin 4.3 g/dL (3.4-5.0) Albumin/Globulin Ratio 1.3 (1.0-1.7) Thyroid Stimulating Hormone (TSH) 1.589 uIU/mL (0.358-3.74) Urine Collection Type Unknown Urine Color Yellow Urine Clarity Hazy Urine pH 6.5 Urine Specific [place] 1.010 Urine Protein 30 mg/dL (NEG-TRACE) Urine Glucose (UA) Negative mg/dL (NEG) Urine Ketones (Stick) Trace mg/dL (NEG) Urine Blood Small (NEG) Urine Nitrite Negative (NEG) Urine Bilirubin Negative (NEG) Urine Urobilinogen Dipstick 1.0 mg/dL (0.2 mg/dL) Urine Leukocyte Esterase Moderate (NEG) Urine RBC Occ /HPF (0-2) Urine WBC >40 /HPF (0-4) Urine Squamous Epithelial Cells Few /LPF Urine Bacteria Many /HPF (0-FEW) Urine Opiates Screen Pos (NEG) Urine Methadone Screen Neg (NEG) Urine Barbiturates Neg (NEG) Urine Phencyclidine Screen Neg (NEG) Urine Amphetamine/Methamphetamine Neg (NEG) Urine Benzodiazepines Screen Neg (NEG) Urine Cocaine Screen Neg (NEG) Urine Cannabinoids Screen Neg (NEG) Urine Ethyl Alcohol Neg (NEG) Laboratory Tests 06/23/17 12:20 Laboratory Tests 06/23/17 12:20 EKG EKG 12:[address] Montaño sinus rate them heart rate 98 QRS interval 96[] Radiology/Procedures Radiology/Procedures []PROCEDURE: PORTABLE CHEST 1V Single view chest History:Chest pain, shortness of breath starting today An AP view of the chest is submitted. Comparison: 10/09/2015. Findings: There is no significant infiltrate, pleural effusion, or pneumothorax. The pericardial cardiac silhouette is within normal limits in size. There is atherosclerotic calcification near aortic arch. There is hiatal hernia. Impression: There is no radiographic evidence of acute cardiopulmonary disease. DICTATED and SIGNED BY: YORDAN NIXON MD DATE: 06/23/17 1200 CC: KATEY PAUL MD; LASHAUN RICHARDSON APRN ~ Course & Med Decision Making Course & Med Decision Making Pertinent Labs and Imaging studies reviewed. (See chart for details) This is a 72-year-old female patient presenting to the ED today with bilateral upper chest pain with dizziness nausea that began this morning when she was walking in a [employer] store. Her cardiac workup is negative. Urine positive for UTI. Will be discharged with cephalexin. Patient was offered admission for chest pain rule out, she has declined. She states she has a sick admitted on the second floor and she has to go and take care of the . She will sign out AMA. She was provided risks of signing out AMA including . Instructed to return to the ED at any point she chooses. Dragon Disclaimer Dragon Disclaimer This electronic medical record was generated, in whole or in part, using a voice recognition dictation system. Departure Departure Impression: Primary Impression: Chest pain Additional Impression: Urinary tract infection Disposition: AGAINST MEDICAL ADVICE Condition: STABLE Referrals: KATEY PAUL MD (PCP) Call your doctor tomorrow for follow-up appointment Patient Instructions: Chest Pain (Nonspecific), Urinary Tract Infection Additional Instructions: You were seen for chest pain. We highly recommended you get admitted to the hospital but you decided to sign out AGAINST MEDICAL ADVICE. We gave you the risk of leaving including . Please ensure you follow-up with your doctor. You have urinary tract infection we put you on antibiotics. Make sure you complete them. Return to the ED at any point you choose to be evaluated. Scripts Cephalexin (CEPHALEXIN) 500 Mg Tablet 1 TAB PO BID, #14 TAB Prov: LASHAUN RICHARDSON APRN 06/23/17 Problem Qualifiers Primary Impression: Chest pain Chest pain type: unspecified Qualified Codes: R07.9 - Chest pain, unspecified Additional Impression: Urinary tract infection Urinary tract infection type: site unspecified Hematuria presence: without hematuria Qualified Codes: N39.0 - Urinary tract infection, site not specified LASHAUN RICHARDSON APRN Jun 23, 2017 12:26
--- NOTE | 2017-06-23 12:28 | EKG ---
[facility] [address] [place] [address] Test Date: 2017-06-23 Test Time: 12:00:58 Pat Name: EMERSON RODRIGUEZ Department: Room: Gender: F Public Information Director: : 1945 Requested By: LASHAUN RICHARDSON Order Number: [id number] Reading MD: Peter Brantley Measurements Intervals Hanna Rate: 98 P: 34 MS: 188 QRS: -4 QRSD: 96 T: 36 QT: 342 QTc: 438 Interpretive Statements SINUS RHYTHM LEFTWARD AXIS QRS(T) CONTOUR ABNORMALITY CONSISTENT WITH INFERIOR INFARCT PROBABLY OLD ABNORMAL ECG Electronically Signed On 07-01-2017 14:22:44 FLOOR NURSE by Peter Brantley
[2017-06-23] MEDS ORDERED: ASPIRIN 325 MG TABLET PO ONE (12:30)
[2017-06-23] MEDS ORDERED: FAMOTIDINE 20 MG/2 ML VIAL IVP ONE (12:30)
[2017-06-23] MEDS ORDERED: ONDANSETRON PF 4 MG/2 ML VIAL. ONE (12:31)
[2017-06-23 12:32] LABS: BASO % 0 % (0-3); EOS % 1 % (0-3); HEMATOCRIT 38.8 % (36.0-47.0); LYMPH # 1.4 x10^3/uL (1.0-4.8); LYMPH % 23 % (24-48); MEAN CORPUSCULAR HEMOGLOBIN 30 pg (25-35); MEAN CORPUSCULAR HGB CONC 33 g/dL (31-37); MEAN CORPUSCULAR VOLUME 89 fL (79-100); MONO % 6 % (0-9); NEUT % 70 % (31-73); PLATELET COUNT 223 x10^3/uL (140-400); RED BLOOD COUNT 4.39 x10^6/uL (3.50-5.40); RED CELL DISTRIBUTION WIDTH 13.5 % (11.5-14.5); WHITE BLOOD COUNT 5.8 x10^3/uL (4.0-11.0)
[2017-06-23 12:41] LABS: PROTHROMBIN TIME PATIENT 12.1 SEC (11.7-14.0)
[2017-06-23 12:43] LABS: CALCIUM 9.6 mg/dL (8.5-10.1); GFR 54.7; POTASSIUM 4.3 mmol/L (3.5-5.1)
[2017-06-23 12:48] LABS: ALBUMIN 4.3 g/dL (3.4-5.0); ALBUMIN/GLOBULIN RATIO 1.3 (1.0-1.7); MAGNESIUM 1.9 mg/dL (1.8-2.4); TOTAL BILIRUBIN 0.3 mg/dL (0.2-1.0); TOTAL PROTEIN 7.7 g/dL (6.4-8.2)
[2017-06-23 12:55] LABS: CKMB MASS 0.9 ng/mL (0.0-3.6)
--- NOTE | 2017-06-23 12:59 | RAD ---
Single view chest History:Chest pain, shortness of breath starting today An AP view of the chest is submitted. Comparison: 10/09/2015. Findings: There is no significant infiltrate, pleural effusion, or pneumothorax. The pericardial cardiac silhouette is within normal limits in size. There is atherosclerotic calcification near aortic arch. There is hiatal hernia. Impression: There is no radiographic evidence of acute cardiopulmonary disease.
[2017-06-23 13:33] LABS: BILIRUBIN,URINE NEGATIVE (NEG); GLUCOSE,URINE NEGATIVE (NEG); NITRITE,URINE NEGATIVE (NEG); PH,URINE 6.5; PROTEIN,URINE 30 mg/dL (NEG-TRACE)
[2017-06-23 13:39] LABS: BARBITURATES NEG (NEG); BENZODIAZEPINES NEG (NEG); CANNABINOIDS NEG (NEG); COCAINE NEG (NEG); METHADONE NEG (NEG); OPIATES POS (NEG); PHENCYCLIDINE NEG (NEG)
[2017-06-23] MEDS ORDERED: ONDANSETRON PF 4 MG/2 ML VIAL. IV ONE (13:45)
[2017-06-23 13:48] LABS: RBC,URINE OCC /HPF (0-2)
[2017-06-23 13:49] LABS: BACTERIA,URINE MANY /HPF (0-FEW); SQUAMOUS EPITHELIAL CELL,UR FEW /LPF; WBC,URINE >40 /HPF (0-4)
[2017-06-23] MEDS ORDERED: CEPH500T PO (14:24)
[2017-06-23 14:34] VITALS: BP 150/69
== END 2017-06-23 14:40 | disposition left against medical advice (07) ==
LOC: ER 11:48
DX: R07.89 Other chest pain (principal); N39.0 Urinary tract infection, site not specified; I10 Essential (primary) hypertension; K21.9 Gastro-esophageal reflux disease without esophagitis; M79.7 Fibromyalgia; F32.9 Major depressive disorder, single episode, unspecified
CPT/HCPCS: 36415; 71010; 80053; 80307; 81001; 82553; 83735; 83880; 84443; 84484; 85025; 85610; 93005; 96374; 96375; 99285; J2405; S0028; G0479

== ENCOUNTER → 2018-03-27 | Day surgery (SDC) | payer MEDICARE ==
[~2018-03-27] MED LIST changes: +CEPH500T PO; +HYDROmorphone 2 MG/ML VIAL IV PRN; +IV RINGERS,LACTATED 1000ML 1,000 ML IV SCH; +LIDOCAINE 1% PF 2 ML VIAL. ID PRN; +LORA10TA68 PO; +MORPHINE SULFATE 2 MG/ML VIAL. IV PRN; +ONDANSETRON PF 4 MG/2 ML VIAL. IV PRN; +PROCHLORPERAZINE 10 MG/2 ML VIAL. IV PRN; +PROPOFOL 40 ML IV ONE; +fentaNYL PF VIAL 100 MCG/2 ML VIAL IV PRN
[2018-03-27 10:55] VITALS: BP 183/83
--- NOTE | 2018-03-27 11:35 | PREOP HP ---
DATE OF SERVICE: 03/27/2018 REQUESTING PHYSICIAN: Kaity Valle M.D. PRIMARY CARE PHYSICIAN: Kaity Valle M.D. REASON FOR PROCEDURE: Iron-deficiency anemia. HISTORY OF PRESENT ILLNESS: This is a 72-year-old female who recently had a positive Hemoccult and positive Cologuard. She has history of colon polyps. She also has a history of dysphagia, which she currently denies since getting her teeth. ALLERGIES: No known drug allergies. PAST MEDICAL HISTORY: Colon polyps. FAMILY MEDICAL HISTORY: Ovarian cancer. MEDICATIONS: MAR reviewed. REVIEW OF SYSTEMS: Positive as per HPI and otherwise negative. PHYSICAL EXAMINATION: VITAL SIGNS: She is afebrile. Her vital signs are stable. GENERAL: She is an obese female, in no apparent distress. HEENT: Oropharynx is clear. CARDIOVASCULAR: S1, S2. LUNGS: Clear. ABDOMEN: Normoactive bowel sounds. Soft, nontender and nondistended. EXTREMITIES: No edema. NEUROLOGIC: Awake and oriented x 3. ASSESSMENT AND PLAN: 1. Iron-deficiency anemia. Undergo upper endoscopy for further evaluation. 2. History of colon polyps. Undergo colonoscopy for further evaluation. The risks and benefits of the procedures have been explained and she has agreed to proceed. Thank you for allowing me to participate in the care of this patient. SUZETTE TREJO MD DR: ELIEZER/jose JOB#: [id number] / [id number]
--- NOTE | 2018-03-28 15:07 | PATHOLOGY ---
[facility] Accession Number: [id number] . 01 Material submitted: . PART A: SMALL BOWEL BIOPSY PART B: GASTRIC ANTRUM BIOPSY PART C: DISTAL ESOPHAGUS BIOPSY . 01 Clinical history: . Abdominal pain . 02 Diagnosis: A. Small bowel biopsies: - No significant pathologic abnormalities. . B. Gastric biopsies, antrum: - Consistent with mild reactive gastropathy. . C. Esophageal biopsies, distal esophagus: - Segments of esophagogastric mucosa showing mild chronic inflammation. [facility]/03/28/2018 . 02 Comment: Sections of the small bowel biopsies reveal segments of duodenal and small intestinal mucosa. Where best oriented, the mucosal villi show no sprue-like changes or significant inflammatory changes. Sections of the gastric antral biopsies show congestion, mild foveolar hyperplasia, and focal mild chronic inflammation. An immunoperoxidase stain for Helicobacter is negative for Helicobacter organisms. The findings are consistent with a mild reactive gastropathy. Sections of the distal esophageal biopsy reveal segments of esophagogastric mucosa consisting predominantly of gastric mucosa. There is mild chronic inflammation. There is no evidence of Smith's change, dysplasia, or malignancy. (JPM:[facility] 03/28/2018) . Special stain performed: Immunoperoxidase stain for Helicobacter on B1. . 02 Electronically signed: . Mundo Armstrong MD, Pathologist NPI- [id number] . 01 Gross description: . A. Received in formalin labeled "Nora Cifuentes, small bowel BX," are 4 segments of shine soft tissue measuring 1.1 x 0.9 x 0.2 cm in aggregate dimensions and ranging from 0.2 to 0.3 cm in maximum dimension. The specimen is submitted entirely in cassette A1. . B. Received in formalin labeled "Nora Cifuentes, gastric antrum BX," are 2 segments of shine soft tissue measuring 0.6 x 0.2 x 0.2 cm in aggregate dimensions and measuring 0.3 cm each in maximum dimension. The specimen is submitted entirely in cassette B1. . C. Received in formalin labeled ", Nora, distal esophagus BX," are 2 segments of shine soft tissue measuring 0.7 x 0.3 x 0.2 cm in aggregate dimensions and ranging from 0.3 to 0.4 cm in maximum dimension. The specimen is submitted entirely in cassette C1. ([facility]; 03/27/2018) TOB/TOB . 02 Pathologist provided ICD-10: K31.9, K20.9 . 02 CPT . 690872, 862620, [id number], [id number] Performed at: 01 [facility] [address] [facility] [address], [place] [id number] MD Uday Ward MD Phone: [phone] Performed at: 02 [facility] [address] [place], [place] [id number] MD Mundo Armstrong MD Phone: [phone]
== END | disposition home or self-care (01) ==
LOC: ENDOS 09:09
PROVIDERS: ATTEND Internal Medicine Gastroenterology
DX: K57.30 Diverticulosis of large intestine without perforation or abscess without bleeding (principal); K64.0 First degree hemorrhoids; K21.0 Gastro-esophageal reflux disease with esophagitis; K31.89 Other diseases of stomach and duodenum; D50.9 Iron deficiency anemia, unspecified; F41.9 Anxiety disorder, unspecified; M19.90 Unspecified osteoarthritis, unspecified site; Z86.010 Personal history of colon polyps; M79.7 Fibromyalgia; E78.00 Pure hypercholesterolemia, unspecified; I10 Essential (primary) hypertension; Z80.41 Family history of malignant neoplasm of ovary; Z79.899 Other long term (current) drug therapy; Z90.49 Acquired absence of other specified parts of digestive tract; Z98.890 Other specified postprocedural states
CPT/HCPCS: 43239; 45378; J2704; 88305; 88342

== ENCOUNTER 2018-05-02 17:11 | Inpatient (IN) | payer MEDICARE ==
[~2018-05-02] VITALS: Ht 165.1 cm; Wt 93.0 kg
[~2018-05-02 17:11] MED LIST changes: -HYDROmorphone 2 MG/ML VIAL IV PRN; -IV RINGERS,LACTATED 1000ML 1,000 ML IV SCH; -LIDOCAINE 1% PF 2 ML VIAL. ID PRN; -MORPHINE SULFATE 2 MG/ML VIAL. IV PRN; -ONDANSETRON PF 4 MG/2 ML VIAL. IV PRN; -PROCHLORPERAZINE 10 MG/2 ML VIAL. IV PRN; -PROPOFOL 40 ML IV ONE; -fentaNYL PF VIAL 100 MCG/2 ML VIAL IV PRN
[2018-05-02] MEDS ORDERED: AMPICILLIN/SULBACTAM 3 GM in IV NORMAL SALINE 100ML 100 ML IV ONE (19:15)
[2018-05-02] MEDS ORDERED: IV NORMAL SALINE 500ML BAG 500 ML IV ONE (19:15)
[2018-05-02] MEDS ORDERED: fentaNYL PF VIAL 100 MCG/2 ML VIAL IV ONE (19:15)
[2018-05-02] MEDS ORDERED: ACETAMINOPHEN 325 MG TABLET. PO PRN (19:45)
--- NOTE | 2018-05-02 19:46 | PHYS DOC ---
Past Medical History Past Medical History: Depression, Fibromyalgia, GERD, Hypertension, Other Additional Past Medical Histor: FOOD BOLUSES, STRICTURE, PE, Heart Murmur Past Surgical History: Cholecystectomy, Hysterectomy Additional Past Surgical Histo: ESPHOGUS DILATION, LT ANKLE, RT ROTATOR CUFF Alcohol Use: Occasionally Drug Use: None Adult General Chief Complaint Chief Complaint: ANIMAL BITE HPI HPI 72-year-old female presents to ER via POV with complaints of left lower leg swelling, redness, and tenderness following a cat bite 1 day ago. Patient denies fever or chills but reports she has been feeling more fatigued and has had worsening symptoms. Patient reports she took her hydrocodone this morning with slight improvement in pain otherwise no other nals-ord-zuxajzs medications. Patient reports she has been able to walk but has increased pain with weightbearing. Patient reports past history of PE otherwise denies DVT, recent travel, smoking history, or hormonal therapy. Review of Systems Review of Systems Constitutional: Denies fever or chills. Reports generalized fatigue. Reports anxiety and stress with sick also- denies SI HENT: Denies nasal congestion or sore throat [] Respiratory: Denies cough or shortness of breath [] Cardiovascular: Denies CP/palpitations GI: Denies nausea, vomiting, bloody stools or diarrhea [] Musculoskeletal: Denies back pain or joint pain [] Integument: Denies rash or skin lesions. Reports cat bite lt lower leg on outer side with redness/swelling/warmth- swelling extending into lt calf/ankle/foot Neurologic: Denies headache, focal weakness or sensory changes [] All other systems were reviewed and found to be within normal limits, except as documented in this note. Current Medications Current Medications Current Medications Medications (Trade) Dose Ordered Sig/Micheline Start Time Stop Time Status Last Admin Dose Admin Ampicillin Sodium/ Sulbactam Sodium 3 gm/Sodium Chloride 100 ml @ 200 mls/hr 1X ONCE 05/02/18 19:15 05/02/18 19:44 DC 05/02/18 19:46 200 MLS/HR Fentanyl Citrate (Fentanyl 2ml Vial) 25 mcg 1X ONCE 05/02/18 19:15 05/02/18 19:16 DC 05/02/18 19:48 25 MCG Sodium Chloride 500 ml @ 500 mls/hr 1X ONCE 05/02/18 19:15 05/02/18 20:14 DC 05/02/18 19:47 500 MLS/HR Allergies Allergies Allergies Coded Allergies Type Severity Reaction Last Updated Verified No Known Medication Allergies Allergy Unknown 03/27/18 No Physical Exam Physical Exam Constitutional: Well developed, well nourished, no acute distress, non-toxic appearance. [] HENT: Normocephalic, atraumatic, oropharynx moist, nose normal. [] Eyes: PERRLA, conjunctiva normal, no discharge. [] Neck: Normal range of motion, no tenderness, supple, no stridor. [] Cardiovascular:Heart rate regular rhythm, no murmur [] Lungs & Thorax: Bilateral breath sounds clear to auscultation. Respirations equal and nonlabored Abdomen: Bowel sounds normal, soft, no tenderness, no masses, no pulsatile masses. [] Skin: Warm, dry, no erythema, no rash. [] Back: No tenderness, no CVA tenderness. [] Extremities: No cyanosis, no clubbing, ROM intact. Tender to palp. in lt calf extending into ankle- with soft tissue swelling and warmth/erythema to posterior lt lower leg. Lt calf > rt calf- no ecchymosis. Scabbed wound to lateral lt lower leg where pt reports cat bit her. Steady unassisted gait Neurologic: Alert and oriented X 3, normal motor function, normal sensory function, no focal deficits noted. [] Psychologic: Affect normal, judgement normal, mood normal. [] Current Patient Data Vital Signs Vital Signs Date Time Temp Pulse Resp B/P (MAP) Pulse Ox O2 Delivery O2 Flow Rate FiO2 05/02/18 19:04 99.0 94 16 168/69 (102) 97 Room Air 99.0 Lab Values Laboratory Tests Test 05/02/18 19:25 White Blood Count 10.5 x10^3/uL (4.0-11.0) Red Blood Count 3.49 x10^6/uL (3.50-5.40) L Hemoglobin 11.0 g/dL (12.0-15.5) L Hematocrit 31.3 % (36.0-47.0) L Mean Corpuscular Volume 90 fL (79-100) Mean Corpuscular Hemoglobin 32 pg (25-35) Mean Corpuscular Hemoglobin Concent 35 g/dL (31-37) Red Cell Distribution Width 14.5 % (11.5-14.5) Platelet Count 176 x10^3/uL (140-400) Neutrophils (%) (Auto) 80 % (31-73) H Lymphocytes (%) (Auto) 14 % (24-48) L Monocytes (%) (Auto) 6 % (0-9) Eosinophils (%) (Auto) 0 % (0-3) Basophils (%) (Auto) 0 % (0-3) Neutrophils # (Auto) 8.4 x10^3uL (1.8-7.7) H Lymphocytes # (Auto) 1.4 x10^3/uL (1.0-4.8) Monocytes # (Auto) 0.6 x10^3/uL (0.0-1.1) Eosinophils # (Auto) 0.0 x10^3/uL (0.0-0.7) Basophils # (Auto) 0.0 x10^3/uL (0.0-0.2) Sodium Level 141 mmol/L (136-145) Potassium Level 3.5 mmol/L (3.5-5.1) Chloride Level 103 mmol/L (98-107) Carbon Dioxide Level 27 mmol/L (21-32) Anion Gap 11 (6-14) Blood Urea Nitrogen 23 mg/dL (7-20) H Creatinine 0.9 mg/dL (0.6-1.0) Estimated GFR (Cockcroft-Gault) 61.7 BUN/Creatinine Ratio 26 (6-20) H Glucose Level 117 mg/dL (70-99) H Lactic Acid Level 1.0 mmol/L (0.4-2.0) Calcium Level 9.1 mg/dL (8.5-10.1) Total Bilirubin 0.4 mg/dL (0.2-1.0) Aspartate Amino Transferase (AST) 19 U/L (15-37) Alanine Aminotransferase (ALT) 19 U/L (14-59) Alkaline Phosphatase 81 U/L (46-116) C-Reactive Protein, Quantitative 237.9 mg/L (0-3.3) H Total Protein 7.1 g/dL (6.4-8.2) Albumin 3.3 g/dL (3.4-5.0) L Albumin/Globulin Ratio 0.9 (1.0-1.7) L Laboratory Tests 05/02/18 19:25 Laboratory Tests 05/02/18 19:25 EKG EKG [] Radiology/Procedures Radiology/Procedures PROCEDURE: VENOUS LOWER EXTREMITY LEFT Left lower extremity venous duplex study 05/02/2018 Clinical History: Left leg swelling and redness. Technique: Using a combination of real time ultrasound imaging and color-flow and pulse Doppler imaging techniques along with graded compression and augmentation, duplex evaluation of the deep venous system of the left lower extremity was performed. Multiple images were obtained. Findings: There is no sonographic evidence of deep venous thrombosis involving the visualized deep venous structures of the left lower extremity. Impression: Negative study. Electronically signed by: Shahram Miller MD (05/02/2018 8:20 PM) [facility] DICTATED and SIGNED BY: SHAHRAM MILLER MD DATE: 05/02/182019 Course & Med Decision Making Course & Med Decision Making Pertinent Labs and Imaging studies reviewed. (See chart for details) With patient's presenting symptoms discussed admission for further care and IV antibiotics. Patient is agreeable with this plan. Blood cultures and lactic acid will be obtained while in the ER and patient will be charted on IV Unasyn. With swelling extending into left calf along with tenderness in patient's previous history of PE will obtain venous ultrasound on left lower extremity. Patient will be admitted to hospitalist services for further care. Pt had NL lactic acid at 1.0 with WBCs at 10.5; venous US of lt LE was neg. for DVT; CRP elevated at 237.9. Pt remained neuro/vascular intact while in ER in lt LE. Pt's case and plan of care was discussed with Dr. Spears. Lora Disclaimer Lora Disclaimer This electronic medical record was generated, in whole or in part, using a voice recognition dictation system. Departure Departure Impression: Primary Impression: Cellulitis Additional Impression: Cat bite involving extremity Disposition: ADMITTED INPATIENT Admitting Physician: Paty Randhawa Condition: STABLE Referrals: KATEY PAUL MD (PCP) Problem Qualifiers JONATHAN JOSE ELECTROLYSIST May 02, 2018 19:46
[2018-05-02 19:48] LABS: BASO % 0 % (0-3); EOS % 0 % (0-3); HEMATOCRIT 31.3 % (36.0-47.0); LYMPH # 1.4 x10^3/uL (1.0-4.8); LYMPH % 14 % (24-48); MEAN CORPUSCULAR HEMOGLOBIN 32 pg (25-35); MEAN CORPUSCULAR HGB CONC 35 g/dL (31-37); MEAN CORPUSCULAR VOLUME 90 fL (79-100); MONO # 0.6 x10^3/uL (0.0-1.1); MONO % 6 % (0-9); NEUT # 8.4 x10^3uL (1.8-7.7); NEUT % 80 % (31-73); PLATELET COUNT 176 x10^3/uL (140-400); RED BLOOD COUNT 3.49 x10^6/uL (3.50-5.40); RED CELL DISTRIBUTION WIDTH 14.5 % (11.5-14.5); WHITE BLOOD COUNT 10.5 x10^3/uL (4.0-11.0)
[2018-05-02 19:59] LABS: CALCIUM 9.1 mg/dL (8.5-10.1); CREATININE 0.9 mg/dL (0.6-1.0); GFR 61.7; POTASSIUM 3.5 mmol/L (3.5-5.1)
[2018-05-02 20:05] LABS: ALBUMIN 3.3 g/dL (3.4-5.0); ALBUMIN/GLOBULIN RATIO 0.9 (1.0-1.7); TOTAL BILIRUBIN 0.4 mg/dL (0.2-1.0); TOTAL PROTEIN 7.1 g/dL (6.4-8.2)
[2018-05-02] MEDS ORDERED: DIPHTH,PERTUSS(ACELL),TET TOX 0.5 ML DISP.SYRIN. VAX IM ONE (20:15)
--- NOTE | 2018-05-02 20:24 | RAD ---
Left lower extremity venous duplex study 05/02/2018 Clinical History: Left leg swelling and redness. Technique: Using a combination of real time ultrasound imaging and color-flow and pulse Doppler imaging techniques along with graded compression and augmentation, duplex evaluation of the deep venous system of the left lower extremity was performed. Multiple images were obtained. Findings: There is no sonographic evidence of deep venous thrombosis involving the visualized deep venous structures of the left lower extremity. Impression: Negative study. Electronically signed by: Shahram Miller MD (05/02/2018 8:20 PM) [facility]
[2018-05-02 20:50] VITALS: BP 192/73
[2018-05-02] MEDS: fentaNYL PF VIAL 100 MCG/2 ML VIAL IV PRN (22:24)
[2018-05-02 23:00] VITALS: BP 150/49
[2018-05-03] MEDS: fentaNYL PF VIAL 100 MCG/2 ML VIAL IV PRN ×3 (01:20→09:34)
[2018-05-03 03:00] VITALS: BP 146/56
[2018-05-03 07:00] VITALS: BP 165/71
[2018-05-03 11:00] VITALS: BP 164/75
[2018-05-03] MEDS: PANTOPRAZOLE 40 MG TABLET.DR. PO SCH (11:30)
[2018-05-03] MEDS: LISINOPRIL 20 MG TABLET PO SCH (11:30)
[2018-05-03] MEDS ORDERED: ONDANSETRON PF 4 MG/2 ML VIAL. IV PRN (11:45)
[2018-05-03] MEDS ORDERED: ACETAMINOPHEN 325 MG TABLET. PO PRN (11:45)
[2018-05-03] MEDS ORDERED: traMADol 50 MG TABLET PO PRN (11:45)
[2018-05-03] MEDS ORDERED: DOCUSATE SODIUM 100 MG CAPSULE. PO PRN (11:45)
[2018-05-03] MEDS ORDERED: MORPHINE SULFATE 2 MG/ML VIAL. IV PRN (11:45)
[2018-05-03] MEDS: DULoxetine HCL 30 MG CAPSULE.DR PO SCH ×2 (12:00→20:44)
[2018-05-03] MEDS: AMPICILLIN/SULBACTAM 3 GM in IV NORMAL SALINE 100ML 100 ML IV SCH ×3 (12:00→23:45)
[2018-05-03] MEDS: oxyCODONE/APAP 10/325 1 TAB TABLET PO PRN ×2 (12:13→18:50)
--- NOTE | 2018-05-03 14:37 | PDOC1 ---
History and Physical Date of Admission Date of Admission 05/03/18 Identification/Chief Complaint Chief Complaint left leg cellulitis Source Source: Chart review, Patient History of Present Illness History of Present Illness HPI 72-year-old female presents to ER via POV with complaints of left lower leg swelling, redness, and tenderness following a cat bite 1 day ago. pt WAs here last year for same reason. She has several small red bites on left leg , today redness and swelling slightly better as per pt. She didnot take abx at home. subjective fever, no chills, sob, chest pain. Patient reports past history of PE otherwise denies DVT, recent travel, smoking history, or hormonal therapy. duplex neg DVT. Past Medical History Cardiovascular: HTN GI: GERD, Other Psych: Depression Rheumatologic: Fibromyalgia Past Surgical History Past Surgical History: Cholecystectomy, Hysterectomy Family History Family History: Hypertension Social History Smoke: No ALCOHOL: none Drugs: None Current Medications Current Medications Current Medications Medications (Trade) Dose Ordered Sig/Micheline Start Time Stop Time Status Last Admin Dose Admin Acetaminophen (Tylenol) 650 mg PRN Q6HRS PRN 05/03/18 11:45 Ampicillin Sodium/ Sulbactam Sodium 3 gm/Sodium Chloride 100 ml @ 200 mls/hr Q6HRS 05/03/18 12:00 05/03/18 12:00 200 MLS/HR Diphtheria/ Tetanus/Acell Pertussis (Boostrix) 0.5 ml ONCE ONCE 05/02/18 20:15 05/02/18 20:16 DC 05/02/18 20:56 0.5 ML Docusate Sodium (Colace) 100 mg PRN DAILY PRN 05/03/18 11:45 Duloxetine HCl (Cymbalta) 30 mg BID 05/03/18 12:00 05/03/18 12:00 30 MG Fentanyl Citrate (Fentanyl 2ml Vial) 25 mcg PRN Q3HRS PRN 05/02/18 19:45 05/03/18 11:46 DC 05/03/18 09:34 25 MCG Lactobacillus Rhamnosus (Culturelle) 1 cap BID 05/03/18 21:00 Lisinopril (Prinivil) 20 mg DAILY 05/03/18 11:30 05/03/18 11:30 20 MG Morphine Sulfate (Morphine Sulfate) 2 mg PRN Q2HR PRN 10/6/18 11:45 Ondansetron HCl (Zofran) 4 mg PRN Q6HRS PRN 05/03/18 11:45 Oxycodone/ Acetaminophen (Percocet 10325) 2 tab PRN Q6HRS PRN 05/03/18 11:30 05/03/18 12:13 2 TAB Pantoprazole Sodium (Protonix) 40 mg DAILYAC 05/03/18 11:30 05/03/18 11:30 40 MG Sodium Chloride 500 ml @ 500 mls/hr 1X ONCE 05/02/18 19:15 05/02/18 20:14 DC 05/02/18 19:47 500 MLS/HR Tramadol HCl (Ultram) 50 mg PRN Q6HRS PRN 05/03/18 11:45 Allergies Allergies Allergies Coded Allergies Type Severity Reaction Last Updated Verified No Known Medication Allergies Allergy Unknown 03/27/18 No ROS Review of System CONSTITUTIONAL: No fever or chills EYES: No recent changes SKIN: No rash or itching CARDIOVASCULAR: No chest pain, syncope, palpitations, or edema RESPIRATORY: No SOB or cough GASTROINTESTINAL: No nausea, vomiting or abdominal pain NEUROLOGICAL: No headaches or weakness ENDOCRINE: No cold or heat intolerance GENITOURINARY: No urgency or frequency of urination MUSCULOSKELETAL: No back pain or joint pain LYMPHATICS: No enlarged lymph nodes PSYCHIATRIC: No anxiety or depression Physical Exam Physical Exam GEN.: No apparent distress. Alert and oriented. HEENT: Head is normocephalic, atraumatic NECK: Supple. LUNGS: Clear to auscultation. HEART: RRR, S1, S2 present. Peripheral pulses intact ABDOMEN: Soft, nontender. Positive bowel sounds. EXTREMITIES: Without any cyanosis. left leg back aspect has several small bites, the foot and lower leg mild erythematous, mild swelling, mild tenderness. NEUROLOGIC: Normal speech, normal tone PSYCHIATRIC: Normal affect, normal mood. SKIN: No ulcerations Vitals Vitals Vital Signs Date Time Temp Pulse Resp B/P (MAP) Pulse Ox O2 Delivery O2 Flow Rate FiO2 05/03/18 12:13 96 Room Air 05/03/18 11:30 79 164/75 05/03/18 11:00 97.5 97.5 05/03/18 07:00 16 Labs Labs Laboratory Tests Test 05/02/18 19:25 White Blood Count 10.5 x10^3/uL (4.0-11.0) Red Blood Count 3.49 x10^6/uL (3.50-5.40) Hemoglobin 11.0 g/dL (12.0-15.5) Hematocrit 31.3 % (36.0-47.0) Mean Corpuscular Volume 90 fL (79-100) Mean Corpuscular Hemoglobin 32 pg (25-35) Mean Corpuscular Hemoglobin Concent 35 g/dL (31-37) Red Cell Distribution Width 14.5 % (11.5-14.5) Platelet Count 176 x10^3/uL (140-400) Neutrophils (%) (Auto) 80 % (31-73) Lymphocytes (%) (Auto) 14 % (24-48) Monocytes (%) (Auto) 6 % (0-9) Eosinophils (%) (Auto) 0 % (0-3) Basophils (%) (Auto) 0 % (0-3) Neutrophils # (Auto) 8.4 x10^3uL (1.8-7.7) Lymphocytes # (Auto) 1.4 x10^3/uL (1.0-4.8) Monocytes # (Auto) 0.6 x10^3/uL (0.0-1.1) Eosinophils # (Auto) 0.0 x10^3/uL (0.0-0.7) Basophils # (Auto) 0.0 x10^3/uL (0.0-0.2) Erythrocyte Sedimentation Rate 47 (0-25) Sodium Level 141 mmol/L (136-145) Potassium Level 3.5 mmol/L (3.5-5.1) Chloride Level 103 mmol/L (98-107) Carbon Dioxide Level 27 mmol/L (21-32) Anion Gap 11 (6-14) Blood Urea Nitrogen 23 mg/dL (7-20) Creatinine 0.9 mg/dL (0.6-1.0) Estimated GFR (Cockcroft-Gault) 61.7 BUN/Creatinine Ratio 26 (6-20) Glucose Level 117 mg/dL (70-99) Lactic Acid Level 1.0 mmol/L (0.4-2.0) Calcium Level 9.1 mg/dL (8.5-10.1) Total Bilirubin 0.4 mg/dL (0.2-1.0) Aspartate Amino Transf (AST/SGOT) 19 U/L (15-37) Alanine Aminotransferase (ALT/SGPT) 19 U/L (14-59) Alkaline Phosphatase 81 U/L (46-116) C-Reactive Protein, Quantitative 237.9 mg/L (0-3.3) Total Protein 7.1 g/dL (6.4-8.2) Albumin 3.3 g/dL (3.4-5.0) Albumin/Globulin Ratio 0.9 (1.0-1.7) Laboratory Tests Test 05/02/18 19:25 White Blood Count 10.5 x10^3/uL (4.0-11.0) Red Blood Count 3.49 x10^6/uL (3.50-5.40) Hemoglobin 11.0 g/dL (12.0-15.5) Hematocrit 31.3 % (36.0-47.0) Mean Corpuscular Volume 90 fL (79-100) Mean Corpuscular Hemoglobin 32 pg (25-35) Mean Corpuscular Hemoglobin Concent 35 g/dL (31-37) Red Cell Distribution Width 14.5 % (11.5-14.5) Platelet Count 176 x10^3/uL (140-400) Neutrophils (%) (Auto) 80 % (31-73) Lymphocytes (%) (Auto) 14 % (24-48) Monocytes (%) (Auto) 6 % (0-9) Eosinophils (%) (Auto) 0 % (0-3) Basophils (%) (Auto) 0 % (0-3) Neutrophils # (Auto) 8.4 x10^3uL (1.8-7.7) Lymphocytes # (Auto) 1.4 x10^3/uL (1.0-4.8) Monocytes # (Auto) 0.6 x10^3/uL (0.0-1.1) Eosinophils # (Auto) 0.0 x10^3/uL (0.0-0.7) Basophils # (Auto) 0.0 x10^3/uL (0.0-0.2) Erythrocyte Sedimentation Rate 47 (0-25) Sodium Level 141 mmol/L (136-145) Potassium Level 3.5 mmol/L (3.5-5.1) Chloride Level 103 mmol/L (98-107) Carbon Dioxide Level 27 mmol/L (21-32) Anion Gap 11 (6-14) Blood Urea Nitrogen 23 mg/dL (7-20) Creatinine 0.9 mg/dL (0.6-1.0) Estimated GFR (Cockcroft-Gault) 61.7 BUN/Creatinine Ratio 26 (6-20) Glucose Level 117 mg/dL (70-99) Lactic Acid Level 1.0 mmol/L (0.4-2.0) Calcium Level 9.1 mg/dL (8.5-10.1) Total Bilirubin 0.4 mg/dL (0.2-1.0) Aspartate Amino Transf (AST/SGOT) 19 U/L (15-37) Alanine Aminotransferase (ALT/SGPT) 19 U/L (14-59) Alkaline Phosphatase 81 U/L (46-116) C-Reactive Protein, Quantitative 237.9 mg/L (0-3.3) Total Protein 7.1 g/dL (6.4-8.2) Albumin 3.3 g/dL (3.4-5.0) Albumin/Globulin Ratio 0.9 (1.0-1.7) VTE Prophylaxis Ordered VTE Prophylaxis Devices: Yes VTE Pharmacological Prophylaxi: Yes Assessment/Plan Assessment/Plan left leg cellulitis with cat bites Accelerated HTN gerd depression fibromyalgia mild malnutrition plan: add rashaad colon tmr with augmentin resume home meds dvt ppx pain control prn ALEXANDRIA NEW MD May 03, 2018 14:37
[2018-05-03 15:00] VITALS: BP 158/71
[2018-05-03] MEDS ORDERED: LABETALOL 20 MG/4 ML DISP.SYRIN. IVP PRN (15:00)
[2018-05-03] MEDS ORDERED: ENOXAPARIN 40 MG/0.4 ML SYRINGE. SQ SCH (15:00)
[2018-05-03 19:33] VITALS: BP 178/67
[2018-05-03] MEDS: LACTOBACILLUS RHAMNOSUS GG 1 CAPSULE. PO SCH (20:44)
[2018-05-03] MEDS ORDERED: traZODone 50 MG TABLET. PO SCH (21:00)
[2018-05-03 23:42] VITALS: BP 141/62
[2018-05-04] MEDS: oxyCODONE/APAP 10/325 1 TAB TABLET PO PRN ×2 (02:54→09:41)
[2018-05-04 03:28] VITALS: BP 147/56
[2018-05-04 05:11] LABS: BASO % 0 % (0-3); EOS # 0.1 x10^3/uL (0.0-0.7); EOS % 2 % (0-3); HEMATOCRIT 29.8 % (36.0-47.0); HEMOGLOBIN 10.3 g/dL (12.0-15.5); LYMPH # 1.3 x10^3/uL (1.0-4.8); LYMPH % 27 % (24-48); MEAN CORPUSCULAR HEMOGLOBIN 31 pg (25-35); MEAN CORPUSCULAR HGB CONC 35 g/dL (31-37); MEAN CORPUSCULAR VOLUME 90 fL (79-100); MONO # 0.2 x10^3/uL (0.0-1.1); MONO % 5 % (0-9); NEUT % 65 % (31-73); PLATELET COUNT 170 x10^3/uL (140-400); RED BLOOD COUNT 3.32 x10^6/uL (3.50-5.40); RED CELL DISTRIBUTION WIDTH 14.2 % (11.5-14.5); WHITE BLOOD COUNT 4.7 x10^3/uL (4.0-11.0)
[2018-05-04 05:28] LABS: CALCIUM 8.6 mg/dL (8.5-10.1); CREATININE 0.8 mg/dL (0.6-1.0); GFR 70.7
[2018-05-04] MEDS: PANTOPRAZOLE 40 MG TABLET.DR. PO SCH (05:32)
[2018-05-04] MEDS: AMPICILLIN/SULBACTAM 3 GM in IV NORMAL SALINE 100ML 100 ML IV SCH (05:32)
[2018-05-04 07:00] VITALS: BP 167/72
[2018-05-04] MEDS: DULoxetine HCL 30 MG CAPSULE.DR PO SCH (09:39)
[2018-05-04] MEDS: LISINOPRIL 20 MG TABLET PO SCH (09:42)
[2018-05-04] MEDS: LACTOBACILLUS RHAMNOSUS GG 1 CAPSULE. PO SCH (09:42)
[2018-05-04 11:00] VITALS: BP 159/69
[2018-05-04] MEDS ORDERED: AMOX1TAB11 PO (11:52)
[2018-05-04] MEDS ORDERED: OXYC-328 PO (11:52)
--- NOTE | 2018-05-04 14:12 | PDOC3 ---
Discharge Summary [facility] Date of Admission: May 02, 2018 Discharge Date: May 04, 2018 Admitting Diagnosis left leg cellulitis with cat bites Accelerated HTN gerd depression fibromyalgia mild malnutrition Brief Hospital Course 72-year-old female presents to ER via POV with complaints of left lower leg swelling, redness, and tenderness following a cat bite 1 day ago. pt WAs here last year for same reason. She has several small red bites on left leg , today redness and swelling slightly better as per pt. She didnot take abx at home. subjective fever, no chills, sob, chest pain. Patient reports past history of PE otherwise denies DVT, recent travel, smoking history, or hormonal therapy. duplex neg DVT. Pt improved with unasyn, dc with augmentin x1week. dc time 35min. GEN.: No apparent distress. Alert and oriented. HEENT: Head is normocephalic, atraumatic NECK: Supple. LUNGS: Clear to auscultation. HEART: RRR, S1, S2 present. Peripheral pulses intact ABDOMEN: Soft, nontender. Positive bowel sounds. EXTREMITIES: Without any cyanosis. left leg back aspect has several small bites, the foot and lower leg mild erythematous, mild swelling, mild tenderness. NEUROLOGIC: Normal speech, normal tone PSYCHIATRIC: Normal affect, normal mood. SKIN: No ulcerations Patient History: Patient reports no known family medical history. CONDITION AT DISCHARGE: Improved Scheduled Amoxicillin/Potassium Clav (Amox Tr-K Clv 875-125 Mg Tab), 1 TAB PO BID Duloxetine Hcl (Cymbalta), 30 MG PO BID, (Reported) Esomeprazole Magnesium (Nexium Capsule), 20 MG PO DAILYAC, (Reported) Scheduled PRN Oxycodone/Apap 10-325 (Percocet 10-325 Mg Tablet), 1 TAB PO PRN Q6HRS PRN for PAIN Miscellaneous Medications Lisinopril (Lisinopril), 1 TAB PO, (Reported) Multivitamins-Min/Fa/Ginkgo (One Daily For Women 50+ Adv Tb), 1 EACH PO, ( Reported) ALEXANDRIA NEW MD May 04, 2018 14:12
[2018-05-04] MEDS ORDERED: AMOXICILLIN/K CLAV 875/125MG TABLET. PO SCH (21:00)
== END 2018-05-04 13:50 | disposition home or self-care (01) | DRG 603 ==
LOC: ER 17:11 → 4 NORTH 19:25
PROVIDERS: ADMIT Internal Medicine; ATTEND Internal Medicine
DX: L03.116 Cellulitis of left lower limb (principal); E44.1 Mild protein-calorie malnutrition; F32.9 Major depressive disorder, single episode, unspecified; I10 Essential (primary) hypertension; K21.9 Gastro-esophageal reflux disease without esophagitis; M79.7 Fibromyalgia; W55.01XA Bitten by cat, initial encounter; Z68.34 Body mass index [BMI] 34.0-34.9, adult; Z82.49 Family history of ischemic heart disease and other diseases of the circulatory system; Z86.711 Personal history of pulmonary embolism; Z90.710 Acquired absence of both cervix and uterus; Z90.49 Acquired absence of other specified parts of digestive tract; Y93.89 Activity, other specified; Y92.89 Other specified places as the place of occurrence of the external cause; Y99.8 Other external cause status
CPT/HCPCS: 36415; 80048; 80053; 83605; 85025; 85651; 86140; 87040; 90471; 90715; 90756; 93971; 96365; 96375; J0295; J1650; J3010; J7040; 99285-25; Q2035

== ENCOUNTER 2018-06-03 07:59 | Emergency (ER) | payer MEDICARE ==
[~2018-06-03] VITALS: Ht 165.1 cm; Wt 97.1 kg
[~2018-06-03 07:59] MED LIST changes: +AMOX1TAB11 PO
--- NOTE | 2018-06-03 08:25 | PHYS DOC ---
Past Medical History Past Medical History: Depression, Fibromyalgia, GERD, Hypertension, Other Additional Past Medical Histor: FOOD BOLUSES, STRICTURE, PE, Heart Murmur Past Surgical History: Cholecystectomy, Hysterectomy Additional Past Surgical Histo: ESPHOGUS DILATION, LT ANKLE, RT ROTATOR CUFF Alcohol Use: Occasionally Drug Use: Opiates Adult General Chief Complaint Chief Complaint: LOWER EXT PAIN [facility] HPI Patient is a 73 year old female who presents with feeling of burning in her left mid calf that radiates up to her left hip 1 week. She states there is been no injury. She states that she took Tylenol earlier this morning. She states she does have chronic arthritis in her hips and knees. Patient has a history of a PE, hysterectomy, shoulder repair, hypertension. Patient's heart rate is 90 and satting 97% on room air. She denies any shortness of air, chest pain, headache, visual changes, weaknesses, numbness. Review of Systems Review of Systems Constitutional: Denies fever or chills [] Eyes: Denies change in visual acuity, redness, or eye pain [] HENT: Denies nasal congestion or sore throat [] Respiratory: Denies cough or shortness of breath [] Cardiovascular: No additional information not addressed in HPI [] GI: Denies abdominal pain, nausea, vomiting, bloody stools or diarrhea [] : Denies dysuria or hematuria [] Musculoskeletal: Burning and tingling in left mid calf that radiates up to left hip. Denies back pain or joint pain [] Integument: Denies rash or skin lesions [] Neurologic: Denies headache, focal weakness or sensory changes [] Endocrine: Denies polyuria or polydipsia [] All other systems were reviewed and found to be within normal limits, except as documented in this note. Allergies Allergies Allergies Coded Allergies Type Severity Reaction Last Updated Verified No Known Medication Allergies Allergy Unknown 03/27/18 No Physical Exam Physical Exam Constitutional: Well developed, well nourished, no acute distress, non-toxic appearance. [] HENT: Normocephalic, atraumatic, bilateral external ears normal, oropharynx moist, no oral exudates, nose normal. [] Eyes: PERRLA, EOMI, conjunctiva normal, no discharge. [] Neck: Normal range of motion, no tenderness, supple, no stridor. [] Cardiovascular:Heart rate regular rhythm, no murmur [] Lungs & Thorax: Bilateral breath sounds clear to auscultation [] Abdomen: Bowel sounds normal, soft, no tenderness, no masses, no pulsatile masses. [] Skin: Warm, dry, no erythema, no rash. [] Back: No tenderness, no CVA tenderness. [] Extremities: Left mid calf tenderness up to the left hip with palpation, no cyanosis, no clubbing, ROM intact, no edema. [] Neurologic: Alert and oriented X 3, normal motor function, normal sensory function, no focal deficits noted. [] Psychologic: Affect normal, judgement normal, mood normal. [] Current Patient Data Vital Signs Vital Signs Date Time Temp Pulse Resp B/P (MAP) Pulse Ox O2 Delivery O2 Flow Rate FiO2 06/03/18 08:05 97.8 80 14 202/98 (132) 97 Room Air 97.8 Lab Values Laboratory Tests Test 06/03/18 08:30 White Blood Count 4.2 x10^3/uL (4.0-11.0) Red Blood Count 4.08 x10^6/uL (3.50-5.40) Hemoglobin 12.6 g/dL (12.0-15.5) Hematocrit 37.1 % (36.0-47.0) Mean Corpuscular Volume 91 fL (79-100) Mean Corpuscular Hemoglobin 31 pg (25-35) Mean Corpuscular Hemoglobin Concent 34 g/dL (31-37) Red Cell Distribution Width 13.8 % (11.5-14.5) Platelet Count 208 x10^3/uL (140-400) Neutrophils (%) (Auto) 56 % (31-73) Lymphocytes (%) (Auto) 36 % (24-48) Monocytes (%) (Auto) 7 % (0-9) Eosinophils (%) (Auto) 2 % (0-3) Basophils (%) (Auto) 0 % (0-3) Neutrophils # (Auto) 2.4 x10^3uL (1.8-7.7) Lymphocytes # (Auto) 1.5 x10^3/uL (1.0-4.8) Monocytes # (Auto) 0.3 x10^3/uL (0.0-1.1) Eosinophils # (Auto) 0.1 x10^3/uL (0.0-0.7) Basophils # (Auto) 0.0 x10^3/uL (0.0-0.2) Sodium Level 141 mmol/L (136-145) Potassium Level 4.0 mmol/L (3.5-5.1) Chloride Level 103 mmol/L (98-107) Carbon Dioxide Level 26 mmol/L (21-32) Anion Gap 12 (6-14) Blood Urea Nitrogen 15 mg/dL (7-20) Creatinine 1.0 mg/dL (0.6-1.0) Estimated GFR (Cockcroft-Gault) 54.5 Glucose Level 129 mg/dL (70-99) H Calcium Level 8.9 mg/dL (8.5-10.1) Laboratory Tests 06/03/18 08:30 Laboratory Tests 06/03/18 08:30 EKG EKG [] Radiology/Procedures Radiology/Procedures Venous ultrasound left lower leg. Impressions: [facility] [address] [place], [place] [id number] IMAGING REPORT Signed PATIENT: EMERSON RODRIGUEZ ACCOUNT: [id number] : 1945 LOCATION: ER AGE: 73 SEX: F EXAM STATUS: REG ER ORD. PHYSICIAN: VIVIENNE CASTRO APRN REASON: Tingling and burning from L mid calf to left hip/ hx PE PROCEDURE: VENOUS LOWER EXTREMITY LEFT Left lower extremity venous duplex study 06/03/2018 Clinical History: Left leg pain and tingling. Technique: Using a combination of real time ultrasound imaging and color-flow and pulse Doppler imaging techniques along with graded compression and augmentation, duplex evaluation of the deep venous system of the left lower extremity was performed. Multiple images were obtained. Findings: There is no sonographic evidence of deep venous thrombosis involving the visualized deep venous structures of the left lower extremity. Impression: Negative study. Electronically signed by: Shahram Miller MD (06/03/2018 8:48 AM) [id number] DICTATED and SIGNED BY: SHAHRAM MILLER MD DATE: 06/03/18 0830 Course & Med Decision Making Course & Med Decision Making Patient is a 73 year old female who presents with feeling of burning in her left mid calf that radiates up to her left hip 1 week. She states there is been no injury. She states that she took Tylenol earlier this morning. She states she does have chronic arthritis in her hips and knees. Patient has a history of a PE, hysterectomy, shoulder repair, hypertension, cholecystectomy, fibromyalgia. States that she is not on any kind of blood thinner and that she takes Lexapro, Nexium, Hydrocodone, Trazodone, lisinopril, aspirin. Patient states that she is not taking any of her medications today yet as she is hypertensive. Patient's heart rate is 90 and sating 97% on room air. She denies any shortness of air, chest pain, headache, visual changes, weaknesses, numbness. Patient has no extremity edema. Homans sign is positive. There is tenderness with palpation at mid calf up to the hip area. Skin is pink warm and dry. Patient denies the leg ever feeling ice cold, or color changing. There is a strong pedal pulse in the left foot. Cap refill less than 3 seconds. She is alert and oriented. She is steady on her feet and is ambulatory. Patient denies being diabetic. In patient's past medical history she was admitted beginning of April for cellulitis from probable Bite. Patient does not have any cellulitis , wounds, redness, streaking on either of her lower extremities or upper extremities. Venous ultrasound of the left extremity shows no acute findings. Blood work is unremarkable. Patient will be discharged home in stable condition and should continue taking her pain medications prescribed. [] Dragon Disclaimer Dragon Disclaimer This electronic medical record was generated, in whole or in part, using a voice recognition dictation system. Departure Departure Impression: Primary Impression: Left leg paresthesias Disposition: 01 HOME, SELF-CARE Condition: STABLE Referrals: KATEY PAUL MD (PCP) Patient Instructions: Paresthesia Additional Instructions: Follow up with her primary care or another doctor in the office as soon as possible. Pain medications earlier other medications as prescribed. Scripts Hydrocodone/Apap 5-325 (NORCO 5-325 TABLET) 1 Each Tablet 1 TAB PO PRN Q6HRS PRN for PAIN, #8 TAB 0 Refills Prov: VIVIENNE CASTRO APRN 06/03/18 VIVIENNE CASTRO APRN Jun 03, 2018 08:25
[2018-06-03 08:37] LABS: BASO % 0 % (0-3); EOS # 0.1 x10^3/uL (0.0-0.7); EOS % 2 % (0-3); HEMATOCRIT 37.1 % (36.0-47.0); HEMOGLOBIN 12.6 g/dL (12.0-15.5); LYMPH # 1.5 x10^3/uL (1.0-4.8); LYMPH % 36 % (24-48); MEAN CORPUSCULAR HEMOGLOBIN 31 pg (25-35); MEAN CORPUSCULAR HGB CONC 34 g/dL (31-37); MEAN CORPUSCULAR VOLUME 91 fL (79-100); MONO # 0.3 x10^3/uL (0.0-1.1); MONO % 7 % (0-9); NEUT # 2.4 x10^3uL (1.8-7.7); NEUT % 56 % (31-73); PLATELET COUNT 208 x10^3/uL (140-400); RED BLOOD COUNT 4.08 x10^6/uL (3.50-5.40); RED CELL DISTRIBUTION WIDTH 13.8 % (11.5-14.5); WHITE BLOOD COUNT 4.2 x10^3/uL (4.0-11.0)
--- NOTE | 2018-06-03 08:51 | RAD ---
Left lower extremity venous duplex study 06/03/2018 Clinical History: Left leg pain and tingling. Technique: Using a combination of real time ultrasound imaging and color-flow and pulse Doppler imaging techniques along with graded compression and augmentation, duplex evaluation of the deep venous system of the left lower extremity was performed. Multiple images were obtained. Findings: There is no sonographic evidence of deep venous thrombosis involving the visualized deep venous structures of the left lower extremity. Impression: Negative study. Electronically signed by: Shahram Miller MD (06/03/2018 8:48 AM) [id number]
[2018-06-03 08:56] LABS: CALCIUM 8.9 mg/dL (8.5-10.1); GFR 54.5
[2018-06-03 09:00] VITALS: BP 163/83
[2018-06-03] MEDS ORDERED: HYDR-971 PO (09:12)
== END 2018-06-03 09:15 | disposition home or self-care (01) ==
LOC: ER 07:59
DX: R20.2 Paresthesia of skin (principal); M79.605 Pain in left leg; K21.9 Gastro-esophageal reflux disease without esophagitis; I10 Essential (primary) hypertension
CPT/HCPCS: 36415; 80048; 85025; 93971; 99285-25

== ENCOUNTER 2018-07-26 12:42 | Emergency (ER) | payer MEDICARE ==
[~2018-07-26] VITALS: Ht 167.6 cm; Wt 97.1 kg
[~2018-07-26 12:42] MED LIST changes: -HYDR-2758 PO; +HYDR-2761 PO; +HYDR-3164 PO; -OXYC-328 PO; +OXYC1TAB22 PO
[2018-07-26] MEDS ORDERED: IV NORMAL SALINE 1000ML BAG 1,000 ML IV ONE (14:00)
[2018-07-26] MEDS ORDERED: HYDROcodone/APAP 5/325MG 1 TAB TABLET PO ONE (14:00)
--- NOTE | 2018-07-26 14:11 | RAD ---
Chest, 2 views, 07/26/2018: HISTORY: Cough, shortness of breath Comparison is made to a study from 06/23/2017. The heart size and pulmonary vascularity are normal. There is calcific plaquing of the aorta. There is a large retrocardiac mass containing gas compatible with a hiatal hernia. No pulmonary infiltrate is seen. There is no evidence of pleural fluid. Mild scattered degenerative changes are evident in the spine. IMPRESSION: 1. Large hiatal hernia. 2. No acute cardiopulmonary abnormality is detected. Electronically signed by: Holger Amezquita MD (07/26/2018 2:07 PM) [facility]
--- NOTE | 2018-07-26 14:25 | EKG ---
[facility] [address] [place] [address] Test Date: 2018-07-26 Test Time: 14:11:10 Pat Name: EMERSON RODRIGUEZ Department: Room: Gender: Female Salvager: : 1945 Requested By: JONATHAN JOSE Order Number: [id number] Reading MD: Peter Brantley Measurements Intervals [place] Rate: 85 P: -49 CO: 194 QRS: 36 QRSD: 88 T: 54 QT: 360 QTc: 429 Interpretive Statements SINUS RHYTHM QRS(T) CONTOUR ABNORMALITY CONSIDER ANTEROSEPTAL MYOCARDIAL DAMAGE POSSIBLY ABNORMAL ECG Electronically Signed On 08-01-2018 15:21:28 CLINICAL APPLICATION MANAGER by Peter Brantley
[2018-07-26 14:31] LABS: BILIRUBIN,URINE SMALL (NEG); CLARITY,URINE CLOUDY; COLOR,URINE YELLOW; NITRITE,URINE POSITIVE (NEG); PH,URINE 5.5; PROTEIN,URINE NEGATIVE (NEG-TRACE)
--- NOTE | 2018-07-26 14:36 | PHYS DOC ---
Past Medical History Past Medical History: Arthritis, Depression, Fibromyalgia, GERD, Hypertension, Other Additional Past Medical Histor: FOOD BOLUSES STRICTURE,PE,Heart Murmur Past Surgical History: Cholecystectomy, Hysterectomy, Other Additional Past Surgical Histo: ESPHOGUS DILATION, LT ANKLE, RT ROTATOR CUFF, HAND Alcohol Use: Occasionally Drug Use: Opiates Adult General Chief Complaint Chief Complaint: SHORTNESS OF BREATH HPI HPI - 73-year-old female presents to ER with complaints of 3 day history of shortness of air, productive cough, generalized bodyaches, and sinus congestion. Patient reports she's been coughing up green and yellow phlegm. She denies any chest pain but reports she has been having pain between her shoulder blades. She reports her husb. is currently inpt upstairs at [facility] and so she has been at the hosp. frequently with him. She denies STEWART, dizziness, swelling, or urinary sxs. Pt during initial exam is in no distress and is requesting pain medication as she is out of her Rx'd hydrocodone for her fibromyalgia. Review of Systems Review of Systems Constitutional: Denies fever or chills [] Eyes: Denies change in visual acuity, redness, or eye pain [] HENT: Denies sore throat. Reports sinus congestion Respiratory: Reports cough w/SOA Cardiovascular: Denies CP/palpitations GI: Denies abdominal pain, nausea, vomiting, bloody stools or diarrhea [] : Denies dysuria or hematuria [] Musculoskeletal: Denies back pain or joint pain [] Integument: Denies rash, swelling or skin lesions [] Neurologic: Denies headache, focal weakness or sensory changes [] Endocrine: Denies polyuria or polydipsia [] All other systems were reviewed and found to be within normal limits, except as documented in this note. Current Medications Current Medications Current Medications Medications (Trade) Dose Ordered Sig/Micheline Start Time Stop Time Status Last Admin Dose Admin Acetaminophen/ Hydrocodone Bitart (Lortab 5/325) 1 tab 1X ONCE 07/26/18 14:00 07/26/18 14:01 DC 07/26/18 14:28 1 TAB Ceftriaxone Sodium (Rocephin) 1 gm 1X ONCE 07/26/18 15:45 07/26/18 15:46 DC 07/26/18 15:45 1 GM Sodium Chloride 1,000 ml @ 1,000 mls/hr 1X ONCE 07/26/18 14:00 07/26/18 14:59 DC 07/26/18 14:27 1,000 MLS/HR Allergies Allergies Allergies Coded Allergies Type Severity Reaction Last Updated Verified No Known Drug Allergies 07/27/18 No Physical Exam Physical Exam Constitutional: Well developed, well nourished, no acute distress, non-toxic appearance. [] HENT: Normocephalic, atraumatic, bilateral ears normal, oropharynx moist, no oral exudates, nose normal. Maxillary sinus tenderness- no facial swelling Eyes: Pupils equal, conjunctiva normal, no discharge. [] Neck: Normal range of motion, no tenderness, supple, no stridor/gross adenopathy Cardiovascular: Heart rate regular rhythm Lungs & Thorax: Bilateral breath sounds clear to auscultation- no wheezing/ rhonchi. Resp. equal/nonlabored. Speaking in full sentences. Abdomen: Bowel sounds normal, soft, no tenderness, no masses, no pulsatile masses. [] Skin: Warm, dry, no erythema, no rash. [] Back: No tenderness, no CVA tenderness. [] Extremities: No tenderness, no cyanosis, no clubbing, ROM intact, no edema. [] Neurologic: Alert and oriented X 3, normal motor function, normal sensory function, no focal deficits noted. [] Psychologic: Affect normal, judgement normal, mood normal. [] Current Patient Data Vital Signs Vital Signs Date Time Temp Pulse Resp B/P (MAP) Pulse Ox O2 Delivery O2 Flow Rate FiO2 07/26/18 15:46 80 20 154/70 (98) 97 07/26/18 14:29 Room Air 07/26/18 13:34 98.1 98.1 Lab Values Laboratory Tests Test 07/26/18 14:14 07/26/18 14:30 07/26/18 14:40 Urine Collection Type Void Urine Color Yellow Urine Clarity Cloudy Urine pH 5.5 Urine Specific [place] >=1.030 Urine Protein Negative mg/dL (NEG-TRACE) Urine Glucose (UA) Negative mg/dL (NEG) Urine Ketones (Stick) Negative mg/dL (NEG) Urine Blood Small (NEG) Urine Nitrite Positive (NEG) Urine Bilirubin Small (NEG) Urine Urobilinogen Dipstick 1.0 mg/dL (0.2 mg/dL) Urine Leukocyte Esterase Large (NEG) Urine RBC 0 /HPF (0-2) Urine WBC Tntc /HPF (0-4) Urine Squamous Epithelial Cells Occ /LPF Urine Bacteria Many /HPF (0-FEW) White Blood Count 6.8 x10^3/uL (4.0-11.0) Red Blood Count 3.91 x10^6/uL (3.50-5.40) Hemoglobin 12.2 g/dL (12.0-15.5) Hematocrit 35.0 % (36.0-47.0) L Mean Corpuscular Volume 90 fL (79-100) Mean Corpuscular Hemoglobin 31 pg (25-35) Mean Corpuscular Hemoglobin Concent 35 g/dL (31-37) Red Cell Distribution Width 13.1 % (11.5-14.5) Platelet Count 219 x10^3/uL (140-400) Neutrophils (%) (Auto) 70 % (31-73) Lymphocytes (%) (Auto) 23 % (24-48) L Monocytes (%) (Auto) 5 % (0-9) Eosinophils (%) (Auto) 1 % (0-3) Basophils (%) (Auto) 0 % (0-3) Neutrophils # (Auto) 4.7 x10^3uL (1.8-7.7) Lymphocytes # (Auto) 1.6 x10^3/uL (1.0-4.8) Monocytes # (Auto) 0.3 x10^3/uL (0.0-1.1) Eosinophils # (Auto) 0.1 x10^3/uL (0.0-0.7) Basophils # (Auto) 0.0 x10^3/uL (0.0-0.2) Sodium Level 142 mmol/L (136-145) Potassium Level 3.8 mmol/L (3.5-5.1) Chloride Level 103 mmol/L (98-107) Carbon Dioxide Level 31 mmol/L (21-32) Anion Gap 8 (6-14) Blood Urea Nitrogen 18 mg/dL (7-20) Creatinine 0.9 mg/dL (0.6-1.0) Estimated GFR (Cockcroft-Gault) 61.5 BUN/Creatinine Ratio 20 (6-20) Glucose Level 99 mg/dL (70-99) Lactic Acid Level 0.6 mmol/L (0.4-2.0) Calcium Level 9.0 mg/dL (8.5-10.1) Magnesium Level 1.8 mg/dL (1.8-2.4) Total Bilirubin 0.2 mg/dL (0.2-1.0) Aspartate Amino Transferase (AST) 21 U/L (15-37) Alanine Aminotransferase (ALT) 18 U/L (14-59) Alkaline Phosphatase 106 U/L (46-116) Troponin I Quantitative < 0.017 ng/mL (0.000-0.055) Total Protein 7.0 g/dL (6.4-8.2) Albumin 3.2 g/dL (3.4-5.0) L Albumin/Globulin Ratio 0.8 (1.0-1.7) L Influenza Type A Antigen Negative (NEGATIVE) Influenza Type B Antigen Negative (NEGATIVE) Laboratory Tests 07/26/18 14:30 Laboratory Tests 07/26/18 14:30 Microbiology 07/26/18 Blood Culture - Preliminary, Resulted NO GROWTH AFTER 3 DAYS 07/26/18 Urine Culture - Preliminary, Resulted 07/26/18 Urine Culture Result 1 (RUTHY) - Preliminary, Resulted EKG EKG EKG obtained 07/26/18 at [address] Fisher Radiology/Procedures Radiology/Procedures PROCEDURE: CHEST PA & LATERAL Chest, 2 views, 07/26/2018: HISTORY: Cough, shortness of breath Comparison is made to a study from 06/23/2017. The heart size and pulmonary vascularity are normal. There is calcific plaquing of the aorta. There is a large retrocardiac mass containing gas compatible with a hiatal hernia. No pulmonary infiltrate is seen. There is no evidence of pleural fluid. Mild scattered degenerative changes are evident in the spine. IMPRESSION: 1. Large hiatal hernia. 2. No acute cardiopulmonary abnormality is detected. Electronically signed by: Holger Amezquita MD (07/26/2018 2:07 PM) [facility] DICTATED and SIGNED BY: HOLGER AMEZQUITA MD DATE: 07/26/18 5384 Course & Med Decision Making Course & Med Decision Making Pertinent Labs and Imaging studies reviewed. (See chart for details) 1530: Patient had reexamination and was in no visible distress respirations equal and nonlabored- she was speaking in full sentences. Patient reports she is feeling better than at time of arrival. Pt reports she has been out of her pain medication at home for fibromyalgia and was up visiting [facility]. when she decided to come to ER for eval. Vital signs are stable 154/70 heart rate 81 respirations 20 with O2 sat 98% on room air. Discussed test results with chest x -ray with no acute findings except large hiatal hernia which patient was aware of. EKG with no acute STEMI or ST elevation and troponin was <0.017; lactic acid NL at 0.6 and WBCs 6.8 no bands. Patient has clear lung sounds bilateral and is afebrile. Discussed UA- positive for nitrates small blood with large leuks and micro showing WBCs TNTC. Patient was offered admission for further care/monitoring- she is not wanting to be admitted as her is currently inpatient at [facility] and is wanting to be with him. Will provide dose of IV Rocephin while in the ER and send patient with prescription for Keflex. Patient advised if symptoms worsen she should return to ER or follow up with primary care physician for reevaluation and further care. Patient remains nontoxic in appearance and in no visible distress during this discussion. Dragon Disclaimer Dragon Disclaimer This electronic medical record was generated, in whole or in part, using a voice recognition dictation system. Departure Departure Impression: Primary Impression: Urinary tract infection Additional Impressions: Cough Shortness of breath Disposition: 01 HOME, SELF-CARE Condition: STABLE Referrals: KATEY PAUL MD (PCP) Patient Instructions: Cough, Adult, Shortness of Breath, Urinary Tract Infection Additional Instructions: Drink plenty of fluids to keep hydrated. Follow-up with your primary care physician in 5-7 days for reevaluation sooner with concerns. If symptoms worsen return to the emergency department for reevaluation. Scripts Hydrocodone/Apap 5-325 (NORCO 5-325 TABLET) 1 Each Tablet 1 TAB PO PRN Q6HRS PRN for PAIN, #8 TAB 0 Refills No drinking alcohol or driving while taking this medication Prov: JONATHAN JOSE APRN 07/26/18 Cephalexin (KEFLEX) 500 Mg Capsule 1 CAP PO BID, #14 CAP 0 Refills Prov: JONATHAN JOSE APRN 07/26/18 Problem QualJONATHAN Francis APRN Jul 26, 2018 14:36
[2018-07-26 14:41] LABS: BASO % 0 % (0-3); EOS # 0.1 x10^3/uL (0.0-0.7); EOS % 1 % (0-3); HEMOGLOBIN 12.2 g/dL (12.0-15.5); LYMPH # 1.6 x10^3/uL (1.0-4.8); LYMPH % 23 % (24-48); MEAN CORPUSCULAR HEMOGLOBIN 31 pg (25-35); MEAN CORPUSCULAR HGB CONC 35 g/dL (31-37); MEAN CORPUSCULAR VOLUME 90 fL (79-100); MONO # 0.3 x10^3/uL (0.0-1.1); MONO % 5 % (0-9); NEUT # 4.7 x10^3uL (1.8-7.7); NEUT % 70 % (31-73); PLATELET COUNT 219 x10^3/uL (140-400); RED BLOOD COUNT 3.91 x10^6/uL (3.50-5.40); RED CELL DISTRIBUTION WIDTH 13.1 % (11.5-14.5); WHITE BLOOD COUNT 6.8 x10^3/uL (4.0-11.0)
[2018-07-26 14:42] LABS: BACTERIA,URINE MANY /HPF (0-FEW); RBC,URINE 0 /HPF (0-2); SQUAMOUS EPITHELIAL CELL,UR OCC /LPF; WBC,URINE TNTC /HPF (0-4)
[2018-07-26 14:52] LABS: CREATININE 0.9 mg/dL (0.6-1.0); GFR 61.5; POTASSIUM 3.8 mmol/L (3.5-5.1)
[2018-07-26 14:58] LABS: ALBUMIN 3.2 g/dL (3.4-5.0); ALBUMIN/GLOBULIN RATIO 0.8 (1.0-1.7); MAGNESIUM 1.8 mg/dL (1.8-2.4); TOTAL BILIRUBIN 0.2 mg/dL (0.2-1.0)
[2018-07-26 15:03] LABS: INFLUENZA A PATIENT NEGATIVE (NEGATIVE); INFLUENZA B PATIENT NEGATIVE (NEGATIVE)
[2018-07-26] MEDS ORDERED: HYDR-3164 PO (15:43)
[2018-07-26] MEDS ORDERED: CEPH-264 PO (15:43)
[2018-07-26] MEDS ORDERED: cefTRIAXone IV Push 1 GM VIAL. IVP ONE (15:45)
[2018-07-26 15:46] VITALS: BP 154/70
[2018-07-31] MEDS ORDERED: OXYC1TAB15 PO (10:15)
[2018-07-31] MEDS ORDERED: OXYC10TA46 PO (10:15)
[2018-07-31] MEDS ORDERED: CARV12.511 PO (10:15)
[2018-07-31] MEDS ORDERED: LISI-130 PO (10:15)
[2018-07-31] MEDS ORDERED: ALPR0.254 PO (10:15)
[2018-07-31] MEDS ORDERED: AMLO10TA6 PO (10:16)
== END 2018-07-26 16:20 | disposition home or self-care (01) ==
LOC: ER 12:42
DX: N39.0 Urinary tract infection, site not specified (principal); R05 Cough; R06.02 Shortness of breath; K44.9 Diaphragmatic hernia without obstruction or gangrene; K21.9 Gastro-esophageal reflux disease without esophagitis; I10 Essential (primary) hypertension; Z90.49 Acquired absence of other specified parts of digestive tract; Z90.710 Acquired absence of both cervix and uterus
CPT/HCPCS: 36415; 71046; 80053; 81001; 83605; 83735; 84484; 85025; 87040; 87086; 87804; 93005; 96374; J0696; J7030; 99284-25

== ENCOUNTER 2018-11-27 14:26 | Emergency (ER) | payer MEDICARE ==
[~2018-11-27] VITALS: Ht 165.1 cm; Wt 97.1 kg
[~2018-11-27 14:26] MED LIST changes: -IV RINGERS,LACTATED 1000ML 1,000 ML IV SCH; -LIDOCAINE 2% PF 5 ML VIAL. ONE; -PROPOFOL 20 ML IV ONE
[2018-11-27 15:16] LABS: BASO % 0 % (0-3); EOS # 0.1 x10^3/uL (0.0-0.7); EOS % 2 % (0-3); LYMPH # 1.7 x10^3/uL (1.0-4.8); LYMPH % 28 % (24-48); MEAN CORPUSCULAR HEMOGLOBIN 29 pg (25-35); MEAN CORPUSCULAR HGB CONC 34 g/dL (31-37); MEAN CORPUSCULAR VOLUME 88 fL (79-100); MONO # 0.3 x10^3/uL (0.0-1.1); MONO % 5 % (0-9); NEUT # 3.9 x10^3uL (1.8-7.7); NEUT % 65 % (31-73); PLATELET COUNT 300 x10^3/uL (140-400); RED BLOOD COUNT 4.12 x10^6/uL (3.50-5.40); RED CELL DISTRIBUTION WIDTH 13.5 % (11.5-14.5); WHITE BLOOD COUNT 6.1 x10^3/uL (4.0-11.0)
--- NOTE | 2018-11-27 15:22 | PHYS DOC ---
Past Medical History Past Medical History: Arthritis, Depression, Fibromyalgia, GERD, Hypertension, UTI, Other Additional Past Medical Histor: FOOD BOLUSES STRICTURE,PE,Heart Murmur Past Surgical History: Cholecystectomy, Hysterectomy, Other Additional Past Surgical Histo: ESPHOGUS DILATION, LT ANKLE, RT ROTATOR CUFF,HAND Alcohol Use: Rarely Drug Use: Opiates Adult General Chief Complaint Chief Complaint: OTHER COMPLAINTS HPI HPI Patient is a 73 year old female with a history of food bolus issues and esophageal strictures presents to ED complaining of food stuck in throat after lunch. Patient states she was eating at [employer] and it feels like food has been stuck in her throat since then. She it feels uncomfortable. Rates the pain as 6 out of 10. Patient states that she has been unable to tolerate her secretions. States similar symptoms in the past. Denies vomiting, abdominal pain, diarrhea, chest pain, shortness of breath, fever, weakness. Review of Systems Review of Systems Constitutional: Denies fever or chills [] Eyes: Denies change in visual acuity, redness, or eye pain [] HENT: Denies nasal congestion or sore throat [] Respiratory: Denies cough or shortness of breath [] Cardiovascular: No additional information not addressed in HPI [] GI: Complains of food bolus. Denies abdominal pain, nausea, bloody stools or diarrhea [] : Denies dysuria or hematuria [] Musculoskeletal: Denies back pain or joint pain [] Integument: Denies rash or skin lesions [] Neurologic: Denies headache, focal weakness or sensory changes [] All other systems were reviewed and found to be within normal limits, except as documented in this note. Current Medications Current Medications Current Medications Medications (Trade) Dose Ordered Sig/Micheline Start Time Stop Time Status Last Admin Dose Admin Fentanyl Citrate (Fentanyl 2ml Vial) 50 mcg PRN Q5MIN PRN 11/27/18 15:45 11/27/18 16:25 DC Hydromorphone HCl (Dilaudid) 0.5 mg PRN Q10MIN PRN 11/27/18 15:45 11/27/18 16:25 DC Lidocaine HCl (Xylocaine-Mpf 1% 2ml Vial) 2 ml PRN 1X PRN 11/27/18 15:45 11/27/18 16:25 DC Morphine Sulfate (Morphine Sulfate) 1 mg PRN Q10MIN PRN 11/27/18 15:45 11/27/18 16:25 DC Ondansetron HCl (Zofran) 4 mg PRN Q6HRS PRN 11/27/18 15:45 11/27/18 16:25 DC Prochlorperazine Edisylate (Compazine) 5 mg PACU PRN PRN 11/27/18 15:45 11/27/18 16:25 DC Ringer's Solution 1,000 ml @ 30 mls/hr Q24H 11/27/18 15:33 11/27/18 16:25 DC Allergies Allergies Allergies Coded Allergies Type Severity Reaction Last Updated Verified No Known Drug Allergies 11/27/18 No Physical Exam Physical Exam Constitutional: Well developed, well nourished, no acute distress, non-toxic appearance. [] HENT: Normocephalic, atraumatic, bilateral external ears normal, oropharynx moist, no oral exudates, nose normal. [] Eyes: PERRLA, EOMI, conjunctiva normal, no discharge. [] Neck: Normal range of motion, no tenderness, supple, no stridor. [] Cardiovascular:Heart rate regular rhythm, no murmur [] Lungs & Thorax: Bilateral breath sounds clear to auscultation [] Abdomen: Bowel sounds normal, soft, no tenderness, no masses, no pulsatile masses. [] Skin: Warm, dry, no erythema, no rash. [] Back: No tenderness, no CVA tenderness. [] Extremities: No tenderness, no cyanosis, no clubbing, ROM intact, no edema. [] Neurologic: Alert and oriented X 3, normal motor function, normal sensory function, no focal deficits noted. [] Psychologic: Affect normal, judgement normal, mood normal. [] Current Patient Data Vital Signs Vital Signs Date Time Temp Pulse Resp B/P (MAP) Pulse Ox O2 Delivery O2 Flow Rate FiO2 11/27/18 14:30 98.2 86 22 151/69 (96) 98 Room Air 98.2 Lab Values Laboratory Tests Test 11/27/18 15:05 White Blood Count 6.1 x10^3/uL (4.0-11.0) Red Blood Count 4.12 x10^6/uL (3.50-5.40) Hemoglobin 12.0 g/dL (12.0-15.5) Hematocrit 36.0 % (36.0-47.0) Mean Corpuscular Volume 88 fL (79-100) Mean Corpuscular Hemoglobin 29 pg (25-35) Mean Corpuscular Hemoglobin Concent 34 g/dL (31-37) Red Cell Distribution Width 13.5 % (11.5-14.5) Platelet Count 300 x10^3/uL (140-400) Neutrophils (%) (Auto) 65 % (31-73) Lymphocytes (%) (Auto) 28 % (24-48) Monocytes (%) (Auto) 5 % (0-9) Eosinophils (%) (Auto) 2 % (0-3) Basophils (%) (Auto) 0 % (0-3) Neutrophils # (Auto) 3.9 x10^3uL (1.8-7.7) Lymphocytes # (Auto) 1.7 x10^3/uL (1.0-4.8) Monocytes # (Auto) 0.3 x10^3/uL (0.0-1.1) Eosinophils # (Auto) 0.1 x10^3/uL (0.0-0.7) Basophils # (Auto) 0.0 x10^3/uL (0.0-0.2) Sodium Level 139 mmol/L (136-145) Potassium Level 3.6 mmol/L (3.5-5.1) Chloride Level 99 mmol/L (98-107) Carbon Dioxide Level 29 mmol/L (21-32) Anion Gap 11 (6-14) Blood Urea Nitrogen 20 mg/dL (7-20) Creatinine 0.8 mg/dL (0.6-1.0) Estimated GFR (Cockcroft-Gault) 70.5 BUN/Creatinine Ratio 25 (6-20) H Glucose Level 188 mg/dL (70-99) H Calcium Level 9.3 mg/dL (8.5-10.1) Total Bilirubin 0.3 mg/dL (0.2-1.0) Aspartate Amino Transferase (AST) 18 U/L (15-37) Alanine Aminotransferase (ALT) 19 U/L (14-59) Alkaline Phosphatase 95 U/L (46-116) Total Protein 7.5 g/dL (6.4-8.2) Albumin 3.7 g/dL (3.4-5.0) Albumin/Globulin Ratio 1.0 (1.0-1.7) Laboratory Tests 11/27/18 15:05 Laboratory Tests 11/27/18 15:05 EKG EKG [] Radiology/Procedures Radiology/Procedures [] Course & Med Decision Making Course & Med Decision Making Pertinent Labs and Imaging studies reviewed. (See chart for details) []Food bolus sensation to lower portion of neck. Patient unable to tolerate secretions. Discussed case with GI who is familiar patient. States that they will put her on schedule to remove food bolus. Patient went to GI suite for food bolus removal. Dragon Disclaimer Dragon Disclaimer This electronic medical record was generated, in whole or in part, using a voice recognition dictation system. Departure Departure Impression: Primary Impression: Food impaction of esophagus Disposition: ADMITTED INPATIENT (TO GI SUITE) Condition: STABLE Referrals: KATEY PAUL MD (PCP) CASE KELLY November 27, 2018 15:22
[2018-11-27 15:24] LABS: CALCIUM 9.3 mg/dL (8.5-10.1); CREATININE 0.8 mg/dL (0.6-1.0); GFR 70.5; POTASSIUM 3.6 mmol/L (3.5-5.1)
[2018-11-27] MEDS ORDERED: IV RINGERS,LACTATED 1000ML 1,000 ML IV SCH (15:33)
[2018-11-27 15:40] LABS: ALBUMIN 3.7 g/dL (3.4-5.0); TOTAL BILIRUBIN 0.3 mg/dL (0.2-1.0); TOTAL PROTEIN 7.5 g/dL (6.4-8.2)
[2018-11-27] MEDS ORDERED: fentaNYL PF VIAL 100 MCG/2 ML VIAL IV PRN ×2 (15:45)
[2018-11-27] MEDS ORDERED: LIDOCAINE 1% PF 2 ML VIAL. ID PRN (15:45)
[2018-11-27] MEDS ORDERED: HYDROmorphone 2 MG/ML VIAL IV PRN (15:45)
[2018-11-27] MEDS ORDERED: ONDANSETRON PF 4 MG/2 ML VIAL. IV PRN (15:45)
[2018-11-27] MEDS ORDERED: MORPHINE SULFATE 2 MG/ML VIAL. IV PRN (15:45)
[2018-11-27] MEDS ORDERED: PROCHLORPERAZINE 10 MG/2 ML VIAL. IV PRN (15:45)
--- NOTE | 2018-11-27 15:47 | PDOC2 ---
CONSULT Date of Consult Date of Consult DATE: 11/27/18 TIME: 15:42 Reason for Consult Reason for Consult: Impacted food bolus Referring Physician Referring Physician: ER physician History of Present Illness Reason for Visit: 73 y/o female well-known to us. Eating at [employer] and when got home realized could not take her pills. Really no sensation of food sticking, but has been "spitting up" saliva. Multiple EGD's for impactions in the past; stricture/"ring" variably described. [place] to have GERD; supposedly on PPI daily. H/o diverticulosis on prior colonoscopies. S/p amanda. No other meaningful GI history. Past Medical History Cardiovascular: HTN Psych: Depression Rheumatologic: Fibromyalgia Past Surgical History Past Surgical History: Cholecystectomy, Hysterectomy Family History Family History: Hypertension Social History No ALCOHOL: none Drugs: None Lives: with Family Current Medications Current Medications Current Medications Ondansetron HCl (Zofran) 4 mg PRN Q6HRS PRN IV NAUSEA/VOMITING; Start 11/27/18 at 15:45; Stop 11/28/18 at 15:44 Fentanyl Citrate (Fentanyl 2ml Vial) 25 mcg PRN Q5MIN PRN IV MILD PAIN; Start 11/27/18 at 15:45; Stop 11/28/18 at 15:44 Fentanyl Citrate (Fentanyl 2ml Vial) 50 mcg PRN Q5MIN PRN IV MODERATE TO SEVERE PAIN; Start 11/27/18 at 15:45; Stop 11/28/18 at 15:44 Morphine Sulfate (Morphine Sulfate) 1 mg PRN Q10MIN PRN IV SEVERE PAIN; Start 11/27/18 at 15:45; Stop 11/28/18 at 15:44 Ringer's Solution 1,000 ml @ 30 mls/hr Q24H IV ; Start 11/27/18 at 15:33; Stop 11/28/18 at 03:32 Lidocaine HCl (Xylocaine-Mpf 1% 2ml Vial) 2 ml PRN 1X PRN ID PRIOR TO IV START; Start 11/27/18 at 15:45; Stop 11/28/18 at 15:44 Hydromorphone HCl (Dilaudid) 0.5 mg PRN Q10MIN PRN IV SEV PAIN, Second choice; Start 11/27/18 at 15:45; Stop 11/28/18 at 15:44 Prochlorperazine Edisylate (Compazine) 5 mg PACU PRN PRN IV NAUSEA, MRX1; Start 11/27/18 at 15:45; Stop 11/28/18 at 15:44 Active Scripts Active Amlodipine Besylate 10 Mg Tablet 10 Mg PO DAILY 30 Days Alprazolam 0.25 Mg Tablet 0.25 Mg PO PRN Q8HRS PRN Percocet 5-325 Mg Tablet (Oxycodone/Acetaminophen) 1 Each Tablet 1 Tab PO PRN Q6HRS PRN Oxycontin (Oxycodone HCl) 10 Mg Tab.er.12h 10 Mg PO Q12HR Lisinopril 40 Mg Tablet 40 Mg PO DAILY 30 Days Carvedilol (Carvedilol) 12.5 Mg Tablet 12.5 Mg PO BIDWMEALS 30 Days Reported Nexium Capsule (Esomeprazole Magnesium) 20 Mg Capsule.dr 20 Mg PO DAILYAC One Daily For Women 50+ Adv Tb (Multivitamins-Min/Fa/Ginkgo) 1 Each Tablet 1 Each PO Cymbalta (Duloxetine Hcl) 30 Mg Capsule.dr 30 Mg PO BID Allergies Allergies: Coded Allergies: No Known Drug Allergies (Unverified , 07/27/18) Physical Exam General: Alert, Oriented X3, Cooperative, No acute distress Lungs: Clear to auscultation Heart: Regular rate, Normal S1, Normal S2, No murmurs Abdomen: Normal bowel sounds, Soft, No tenderness, No hepatosplenomegaly, No masses Extremities: No cyanosis, No edema Skin: No significant lesion Neuro: Normal speech, Strength at 5/5 X4 ext, Normal tone, Sensation intact, Cranial nerves 3-12 NL, Reflexes 2+ Psych/Mental Status: Mental status NL, Mood NL MUSCULOSKELETAL: No deformity, No swelling Vitals VITALS Vital Signs Date Time Temp Pulse Resp B/P (MAP) Pulse Ox O2 Delivery O2 Flow Rate FiO2 11/27/18 14:30 98.2 86 22 151/69 (96) 98 Room Air 98.2 Labs Labs Laboratory Tests Test 11/27/18 15:05 White Blood Count 6.1 x10^3/uL (4.0-11.0) Red Blood Count 4.12 x10^6/uL (3.50-5.40) Hemoglobin 12.0 g/dL (12.0-15.5) Hematocrit 36.0 % (36.0-47.0) Mean Corpuscular Volume 88 fL (79-100) Mean Corpuscular Hemoglobin 29 pg (25-35) Mean Corpuscular Hemoglobin Concent 34 g/dL (31-37) Red Cell Distribution Width 13.5 % (11.5-14.5) Platelet Count 300 x10^3/uL (140-400) Neutrophils (%) (Auto) 65 % (31-73) Lymphocytes (%) (Auto) 28 % (24-48) Monocytes (%) (Auto) 5 % (0-9) Eosinophils (%) (Auto) 2 % (0-3) Basophils (%) (Auto) 0 % (0-3) Neutrophils # (Auto) 3.9 x10^3uL (1.8-7.7) Lymphocytes # (Auto) 1.7 x10^3/uL (1.0-4.8) Monocytes # (Auto) 0.3 x10^3/uL (0.0-1.1) Eosinophils # (Auto) 0.1 x10^3/uL (0.0-0.7) Basophils # (Auto) 0.0 x10^3/uL (0.0-0.2) Sodium Level 139 mmol/L (136-145) Potassium Level 3.6 mmol/L (3.5-5.1) Chloride Level 99 mmol/L (98-107) Carbon Dioxide Level 29 mmol/L (21-32) Anion Gap 11 (6-14) Blood Urea Nitrogen 20 mg/dL (7-20) Creatinine 0.8 mg/dL (0.6-1.0) Estimated GFR (Cockcroft-Gault) 70.5 BUN/Creatinine Ratio 25 (6-20) Glucose Level 188 mg/dL (70-99) Calcium Level 9.3 mg/dL (8.5-10.1) Laboratory Tests Test 11/27/18 15:05 White Blood Count 6.1 x10^3/uL (4.0-11.0) Red Blood Count 4.12 x10^6/uL (3.50-5.40) Hemoglobin 12.0 g/dL (12.0-15.5) Hematocrit 36.0 % (36.0-47.0) Mean Corpuscular Volume 88 fL (79-100) Mean Corpuscular Hemoglobin 29 pg (25-35) Mean Corpuscular Hemoglobin Concent 34 g/dL (31-37) Red Cell Distribution Width 13.5 % (11.5-14.5) Platelet Count 300 x10^3/uL (140-400) Neutrophils (%) (Auto) 65 % (31-73) Lymphocytes (%) (Auto) 28 % (24-48) Monocytes (%) (Auto) 5 % (0-9) Eosinophils (%) (Auto) 2 % (0-3) Basophils (%) (Auto) 0 % (0-3) Neutrophils # (Auto) 3.9 x10^3uL (1.8-7.7) Lymphocytes # (Auto) 1.7 x10^3/uL (1.0-4.8) Monocytes # (Auto) 0.3 x10^3/uL (0.0-1.1) Eosinophils # (Auto) 0.1 x10^3/uL (0.0-0.7) Basophils # (Auto) 0.0 x10^3/uL (0.0-0.2) Sodium Level 139 mmol/L (136-145) Potassium Level 3.6 mmol/L (3.5-5.1) Chloride Level 99 mmol/L (98-107) Carbon Dioxide Level 29 mmol/L (21-32) Anion Gap 11 (6-14) Blood Urea Nitrogen 20 mg/dL (7-20) Creatinine 0.8 mg/dL (0.6-1.0) Estimated GFR (Cockcroft-Gault) 70.5 BUN/Creatinine Ratio 25 (6-20) Glucose Level 188 mg/dL (70-99) Calcium Level 9.3 mg/dL (8.5-10.1) Assessment/Plan Assessment/Plan IMP: Possible impacted food bolus. PLAN: EGD. JELANI ZAMAN MD November 27, 2018 15:47
[2018-11-27] MEDS ORDERED: PROPOFOL 10 MG/ML (20ML) VIAL. IV ONE (16:00)
[2018-11-27] MEDS ORDERED: LIDOCAINE 2% PF 5 ML VIAL. ONE (16:00)
--- NOTE | 2018-11-27 16:14 | PDOC4 ---
PROCEDURE Procedure EGD/FB removal Indication: possible impacted food bolus. Meds: per anesthesia Findings: E--Intact shrimp at GEJ; would not push through. Snared and removed orally. Re-inserted scope with what seemed to be a "ring" or stricture distally. Scope would pass easily. G--HH, otherwise normal. D--Small amount food in bulb. Delio. well. IMP: Impacted food (shrimp), removed. Esophageal ring/stricture. HH. REC: Chew! Continue PPI, etc. Will ask f/u in 3-4 weeks; would merit attempt at dilation under better circumstances. Thanks. JELANI ZAMAN MD November 27, 2018 16:14
[2018-11-27 16:25] VITALS: BP 125/84
== END 2018-11-27 15:28 | disposition home or self-care (01) ==
LOC: ER 14:26
DX: T18.128A Food in esophagus causing other injury, initial encounter (principal); K22.2 Esophageal obstruction; M19.90 Unspecified osteoarthritis, unspecified site; F32.9 Major depressive disorder, single episode, unspecified; K21.9 Gastro-esophageal reflux disease without esophagitis; I10 Essential (primary) hypertension; Z90.49 Acquired absence of other specified parts of digestive tract; Z90.710 Acquired absence of both cervix and uterus
CPT/HCPCS: 36415; 43247; 80053; 85025; 99284; J2001; J2704; J7120

== ENCOUNTER → 2018-11-27 | Day surgery (SDC) | payer MEDICARE ==
[~2018-11-27] MED LIST changes: +ALPR0.254 PO; +AMLO10TA8 PO; +CARV12.511 PO; +CEPH-264 PO; +IV RINGERS,LACTATED 1000ML 1,000 ML IV SCH; +LIDOCAINE 2% PF 5 ML VIAL. ONE; +LISI-130 PO; +OXYC10TA46 PO; +OXYC1TAB15 PO; +PROPOFOL 20 ML IV ONE
== END | disposition home or self-care (01) ==
LOC: SURG 15:37
PROVIDERS: ATTEND Internal Medicine Gastroenterology
DX: R10.13 Epigastric pain (principal); Z53.8 Procedure and treatment not carried out for other reasons
CPT/HCPCS: 43235; 43247; J2001; J2704

== ENCOUNTER 2019-01-08 02:40 | Observation (INO) | payer MEDICARE ==
[~2019-01-08] VITALS: Ht 167.6 cm; Wt 98.7 kg
[2019-01-08 03:13] LABS: BASO % 1 % (0-3); EOS # 0.2 x10^3/uL (0.0-0.7); EOS % 5 % (0-3); HEMATOCRIT 36.2 % (36.0-47.0); HEMOGLOBIN 12.2 g/dL (12.0-15.5); LYMPH # 1.5 x10^3/uL (1.0-4.8); LYMPH % 35 % (24-48); MEAN CORPUSCULAR HEMOGLOBIN 30 pg (25-35); MEAN CORPUSCULAR HGB CONC 34 g/dL (31-37); MEAN CORPUSCULAR VOLUME 89 fL (79-100); MONO # 0.3 x10^3/uL (0.0-1.1); MONO % 7 % (0-9); NEUT # 2.3 x10^3uL (1.8-7.7); NEUT % 53 % (31-73); PLATELET COUNT 238 x10^3/uL (140-400); RED BLOOD COUNT 4.09 x10^6/uL (3.50-5.40); RED CELL DISTRIBUTION WIDTH 13.7 % (11.5-14.5); WHITE BLOOD COUNT 4.4 x10^3/uL (4.0-11.0)
[2019-01-08] MEDS ORDERED: GLUCAGON,HUMAN RECOMBINANT 1 MG/ML VIAL. IV ONE (03:15)
[2019-01-08] MEDS ORDERED: ONDANSETRON PF 4 MG/2 ML VIAL. IV ONE (03:15)
[2019-01-08] MEDS ORDERED: IV NORMAL SALINE 1000ML BAG 1,000 ML IV ONE (03:15)
--- NOTE | 2019-01-08 03:18 | PHYS DOC ---
Past Medical History Past Medical History: GERD, Hypertension Additional Past Medical Histor: FOOD BOLUSES STRICTURE,PE,Heart Murmur Past Surgical History: No Surgical History Additional Past Surgical Histo: ESPHOGUS DILATION, LT ANKLE, RT ROTATOR CUFF,HAND Alcohol Use: Occasionally Drug Use: None Adult General Chief Complaint Chief Complaint: DIFFICULTY SWALLOWING HPI HPI Patient is a 73 year old female was presenting with chief complaint of food impaction she ate a chicken sandwich at around midnight it got stuck she feels in her mid chest to just feels like she can't swallow her saliva there is mild dull sensation there. She had a food impaction from shrimp on November 27 they saw a esophageal ring or stricture and she was supposed to get scheduled for a dilation but her so she was unable to do so. Review of Systems Review of Systems Constitutional: Denies fever or chills [] Eyes: Denies change in visual acuity, redness, or eye pain [] HENT: Denies nasal congestion or sore throat [] Respiratory: Denies cough or shortness of breath [] Cardiovascular: No additional information not addressed in HPI [] Musculoskeletal: Denies back pain or joint pain [] Integument: Denies rash or skin lesions [] Neurologic: Denies headache, focal weakness or sensory changes [] Endocrine: Denies polyuria or polydipsia [] All other systems were reviewed and found to be within normal limits, except as documented in this note. Current Medications Current Medications Current Medications Medications (Trade) Dose Ordered Sig/Micheline Start Time Stop Time Status Last Admin Dose Admin Glucagon (Glucagen) 1 mg 1X STAT 01/08/19 03:08 01/08/19 03:09 UNV Lorazepam (Ativan Inj) 1 mg 1X ONCE 01/08/19 03:15 01/08/19 03:16 UNV Ondansetron HCl (Zofran) 4 mg 1X ONCE 01/08/19 03:15 01/08/19 03:16 UNV Sodium Chloride 1,000 ml @ 100 mls/hr 1X ONCE 01/08/19 03:15 01/08/19 13:14 UNV Allergies Allergies Allergies Coded Allergies Type Severity Reaction Last Updated Verified No Known Drug Allergies 11/27/18 No Physical Exam Physical Exam Constitutional: Well developed, well nourished, no acute distress, non-toxic appearance. [] HENT: Normocephalic, atraumatic, bilateral external ears normal, oropharynx moist, no oral exudates, nose normal. [] Eyes: PERRLA, EOMI, conjunctiva normal, no discharge. [] Neck: Normal range of motion, no tenderness, supple, no stridor. [] Cardiovascular:Heart rate regular rhythm, no murmur [] Lungs & Thorax: Bilateral breath sounds clear to auscultation [] Abdomen: Bowel sounds normal, soft, no tenderness, no masses, no pulsatile masses. [] Skin: Warm, dry, no erythema, no rash. [] Neurologic: Alert and oriented X 3, normal motor function, normal sensory function, no focal deficits noted. [] Psychologic: Affect normal, judgement normal, mood normal. [] Current Patient Data Vital Signs Vital Signs Date Time Temp Pulse Resp B/P (MAP) Pulse Ox O2 Delivery O2 Flow Rate FiO2 01/08/19 03:02 98.1 78 16 196/82 (120) 97 Room Air 98.1 Lab Values Laboratory Tests Test 01/08/19 03:00 White Blood Count 4.4 x10^3/uL (4.0-11.0) Red Blood Count 4.09 x10^6/uL (3.50-5.40) Hemoglobin 12.2 g/dL (12.0-15.5) Hematocrit 36.2 % (36.0-47.0) Mean Corpuscular Volume 89 fL (79-100) Mean Corpuscular Hemoglobin 30 pg (25-35) Mean Corpuscular Hemoglobin Concent 34 g/dL (31-37) Red Cell Distribution Width 13.7 % (11.5-14.5) Platelet Count 238 x10^3/uL (140-400) Neutrophils (%) (Auto) 53 % (31-73) Lymphocytes (%) (Auto) 35 % (24-48) Monocytes (%) (Auto) 7 % (0-9) Eosinophils (%) (Auto) 5 % (0-3) H Basophils (%) (Auto) 1 % (0-3) Neutrophils # (Auto) 2.3 x10^3uL (1.8-7.7) Lymphocytes # (Auto) 1.5 x10^3/uL (1.0-4.8) Monocytes # (Auto) 0.3 x10^3/uL (0.0-1.1) Eosinophils # (Auto) 0.2 x10^3/uL (0.0-0.7) Basophils # (Auto) 0.0 x10^3/uL (0.0-0.2) Laboratory Tests 01/08/19 03:00 EKG EKG [] Radiology/Procedures Radiology/Procedures [] Course & Med Decision Making Course & Med Decision Making Pertinent Labs and Imaging studies reviewed. (See chart for details) 73-year-old female history of esophageal ring most likely, presenting with food impaction. We tried usual medications Plan to consult GI admitted to the hospitalist for endoscopy and IV fluids Dragon Disclaimer Dragon Disclaimer This electronic medical record was generated, in whole or in part, using a voice recognition dictation system. Departure Departure Impression: Primary Impression: Food impaction of esophagus Disposition: ADMITTED INPATIENT Admitting Physician: ALDO Condition: STABLE Referrals: KATEY PAUL MD (PCP) MAAME ASHLEY MD Jan 08, 2019 03:18
[2019-01-08 03:21] LABS: PROTHROMBIN TIME PATIENT 12.3 SEC (11.7-14.0)
[2019-01-08 03:33] LABS: CALCIUM 8.7 mg/dL (8.5-10.1); CREATININE 0.8 mg/dL (0.6-1.0); GFR 70.5
[2019-01-08 03:37] LABS: ALBUMIN 3.7 g/dL (3.4-5.0); ALBUMIN/GLOBULIN RATIO 1.1 (1.0-1.7); TOTAL BILIRUBIN 0.3 mg/dL (0.2-1.0); TOTAL PROTEIN 7.1 g/dL (6.4-8.2)
[2019-01-08] MEDS ORDERED: fentaNYL PF VIAL 100 MCG/2 ML VIAL IV ONE (03:45)
--- NOTE | 2019-01-08 05:05 | NUR ---
The patient, EMERSON RODRIGUEZ, 73 y/o, F admitted by CLIFF NG MD, was given written information regarding hospital policies, unit procedures and contact persons. Valuables were checked, safety, comfort, and plan of care discuss and done. Patient verbalize understanding. Call-light within reach. Will continue to monitor.
[2019-01-08 05:08] VITALS: BP 174/72
[2019-01-08] MEDS: IV NORMAL SALINE 1000ML BAG 1,000 ML IV SCH ×2 (06:21→14:45)
[2019-01-08] MEDS: MORPHINE SULFATE 2 MG/ML VIAL. IV PRN ×3 (06:21→11:11)
[2019-01-08 07:00] VITALS: BP 140/55
[2019-01-08] MEDS ORDERED: PANTOPRAZOLE IV PUSH 40 MG VIAL. IVP SCH (07:30)
[2019-01-08 08:03] VITALS: BP 140/55
[2019-01-08] MEDS ORDERED: IV RINGERS,LACTATED 1000ML 1,000 ML IV SCH (11:03)
[2019-01-08 11:05] VITALS: BP 180/71
--- NOTE | 2019-01-08 11:13 | PDOC2 ---
GI CONSULT Reason For Consult: Food impaction HPI: HPI: 73 y/o female who we have seen many times. Has had multiple EGDs for food impactions w/ variable h/o stricture/ring. H/o GERD on PPI. Last EGD on 11/27/18 w/ Dr. Sparrow - intact shrimp, hiatal hernia, small amount of food in duodenum. This time to ER after eating some chicken at midnight. Admitted for EGD/disimpaction. Feels chicken is stuck in upper esophagus, cannot tolerate own secretions. No other GI complaints. PMH: PMH: HTN, depression, fibromyalgia, PE, HLD, +Cologuard (neg scopes), colon polyps, diverticulosis, GERD cholecystectomy, hysterectomy, ORIF ankle, rotator cuff repair FH: Family History: Hypertension Social History: Smoke: No ALCOHOL: none Drugs: None ROS: GEN: Denies fevers, chills, sweats HEENT: Denies blurred vision, sore throat CV: Denies chest pain RESP: Denies shortness of air, cough GI: Per HPI : Denies hematuria, dysuria ENDO: Denies weight changes NEURO: Denies confusion, dizziness MSK: Denies weakness, joint pain/swelling SKIN: Denies jaundice, pruritus Vitals: Vitals: Vital Signs Date Time Temp Pulse Resp B/P (MAP) Pulse Ox O2 Delivery O2 Flow Rate FiO2 01/08/19 09:30 Room Air 01/08/19 08:03 97.9 95 13 140/55 (83) 98 97.9 Labs: Labs: Laboratory Tests Test 01/08/19 03:00 White Blood Count 4.4 x10^3/uL (4.0-11.0) Red Blood Count 4.09 x10^6/uL (3.50-5.40) Hemoglobin 12.2 g/dL (12.0-15.5) Hematocrit 36.2 % (36.0-47.0) Mean Corpuscular Volume 89 fL (79-100) Mean Corpuscular Hemoglobin 30 pg (25-35) Mean Corpuscular Hemoglobin Concent 34 g/dL (31-37) Red Cell Distribution Width 13.7 % (11.5-14.5) Platelet Count 238 x10^3/uL (140-400) Neutrophils (%) (Auto) 53 % (31-73) Lymphocytes (%) (Auto) 35 % (24-48) Monocytes (%) (Auto) 7 % (0-9) Eosinophils (%) (Auto) 5 % (0-3) Basophils (%) (Auto) 1 % (0-3) Neutrophils # (Auto) 2.3 x10^3uL (1.8-7.7) Lymphocytes # (Auto) 1.5 x10^3/uL (1.0-4.8) Monocytes # (Auto) 0.3 x10^3/uL (0.0-1.1) Eosinophils # (Auto) 0.2 x10^3/uL (0.0-0.7) Basophils # (Auto) 0.0 x10^3/uL (0.0-0.2) Prothrombin Time 12.3 SEC (11.7-14.0) Prothromb Time International Ratio 0.9 (0.8-1.1) Sodium Level 143 mmol/L (136-145) Potassium Level 4.0 mmol/L (3.5-5.1) Chloride Level 106 mmol/L (98-107) Carbon Dioxide Level 27 mmol/L (21-32) Anion Gap 10 (6-14) Blood Urea Nitrogen 20 mg/dL (7-20) Creatinine 0.8 mg/dL (0.6-1.0) Estimated GFR (Cockcroft-Gault) 70.5 BUN/Creatinine Ratio 25 (6-20) Glucose Level 134 mg/dL (70-99) Calcium Level 8.7 mg/dL (8.5-10.1) Total Bilirubin 0.3 mg/dL (0.2-1.0) Aspartate Amino Transf (AST/SGOT) 19 U/L (15-37) Alanine Aminotransferase (ALT/SGPT) 19 U/L (14-59) Alkaline Phosphatase 99 U/L (46-116) Total Protein 7.1 g/dL (6.4-8.2) Albumin 3.7 g/dL (3.4-5.0) Albumin/Globulin Ratio 1.1 (1.0-1.7) Allergies: Coded Allergies: No Known Drug Allergies (Unverified , 11/27/18) Medications: Current Medications Medications (Trade) Dose Ordered Sig/Micheline Route PRN Reason Start Time Stop Time Status Last Admin Dose Admin Glucagon (Glucagen) 1 mg 1X ONCE IV 01/08/19 03:15 01/08/19 03:18 DC 01/08/19 03:21 Ondansetron HCl (Zofran) 4 mg 1X ONCE IV 01/08/19 03:15 01/08/19 03:18 DC 01/08/19 03:20 Lorazepam (Ativan Inj) 1 mg 1X ONCE IV 01/08/19 03:15 01/08/19 03:18 DC 01/08/19 03:23 Sodium Chloride 1,000 ml @ 100 mls/hr 1X ONCE IV 01/08/19 03:15 01/08/19 13:14 01/08/19 03:17 Fentanyl Citrate (Fentanyl 2ml Vial) 50 mcg 1X ONCE IV 01/08/19 03:45 01/08/19 03:46 DC 01/08/19 03:51 Sodium Chloride 1,000 ml @ 100 mls/hr Q10H IV 01/08/19 04:45 01/09/19 04:44 01/08/19 06:21 Morphine Sulfate (Morphine Sulfate) 2 mg PRN Q2HR PRN IV PAIN 01/08/19 06:00 01/08/19 09:01 Pantoprazole Sodium (PROTONIX VIAL for IV PUSH) 40 mg DAILYAC IVP 01/08/19 07:30 01/08/19 06:21 Imaging: Imaging: - PE: GEN: NAD HEENT: Atraumatic, PERRL LUNGS: CTAB HEART: RRR ABD: NABS, S/ND/NT EXTREMITY: No edema SKIN: No rashes, no jaundice NEURO/PSYCH: A & O 3, flat A/P: A/P: Possible impacted food bolus GERD, hiatal hernia, h/o esophageal ring/stricture CRC screen, h/o polyps - UTD (2017) S/p cholecystectomy -- EGD/disimpaction w/ Dr. Cochran this afternoon. FANY PUENTES Jan 08, 2019 11:13
[2019-01-08] MEDS ORDERED: fentaNYL PF VIAL 100 MCG/2 ML VIAL IV PRN ×2 (11:15)
[2019-01-08] MEDS ORDERED: LIDOCAINE 1% PF 2 ML VIAL. ID PRN (11:15)
[2019-01-08] MEDS ORDERED: MIDAZOLAM HCL/PF 2 MG/2 ML VIAL. IV PRN (11:15)
--- NOTE | 2019-01-08 12:27 | NUR ---
SW following for discharge planning. Discussed with RN, pt is from home, having an EGD today. RN advised no SW needs at this time. Pt has had [facility] in the past. SW will continue to follow.
--- NOTE | 2019-01-08 12:48 | PDOC3 ---
[facility]-Discharge Summary Date of Admission: Date of Admission: Jan 07, 2019 Date of Discharge: Date of Discharge: Jan 08, 2019 Admission Diagnosis: Admitting Diagnosis: Food impaction with chicken salad Discharge Diagnosis: Discharge Diagnosis: Status post EGD with removal of food impaction Consults: Consults: GI Procedures: Procedures: EGD Hospital Course: Hospital Course: Patient is a elderly female who has periodic food impactions from esophageal strictures Once again she presented with a food impaction after eating chicken salad She was been admitted overnight and we consult a GI The plan is for EGD this afternoon and then if she is doing well with plan to discharge Disposition: Disposition/Orders: D/C to Home Activity: Activity: Resume previous activity Diet: Diet: Soft Medications: Home Meds Active Scripts Amlodipine Besylate (AMLODIPINE BESYLATE) 10 Mg Tablet, 10 MG PO DAILY for htn for 30 Days, #30 TAB Prov:ALEXANDRIA NEW MD 07/31/18 Alprazolam (ALPRAZOLAM) 0.25 Mg Tablet, 0.25 MG PO PRN Q8HRS PRN for ANXIETY / AGITATION, #10 TAB Prov:ALEXANDRIA NEW MD 07/31/18 Oxycodone/Apap 5-325 (PERCOCET 5-325 MG TABLET ) 1 Each Tablet, 1 TAB PO PRN Q6HRS PRN for SEVERE PAIN, #20 TAB Prov:ALEXANDRIA NEW MD 07/31/18 Oxycodone HCl (Oxycontin) 10 Mg Tab.er.12h, 10 MG PO Q12HR for pain, #20 TAB.SR Prov:ALEXANDRIA NEW MD 07/31/18 Lisinopril (LISINOPRIL) 40 Mg Tablet, 40 MG PO DAILY for htn for 30 Days, #30 TAB Prov:ALEXANDRIA NEW MD 07/31/18 Carvedilol (CARVEDILOL ) 12.5 Mg Tablet, 12.5 MG PO BIDWMEALS for htn for 30 Days, #60 TAB Prov:ALEXANDRIA NEW MD 07/31/18 Reported Medications Esomeprazole Magnesium (NEXIUM CAPSULE) 20 Mg Capsule.dr, 20 MG PO DAILYAC, #30 CAP 0 Refills 04/18/15 Multivitamins-Min/Fa/Ginkgo (ONE DAILY FOR WOMEN 50+ ADV TB) 1 Each Tablet, 1 EACH PO 03/20/15 Duloxetine Hcl (CYMBALTA) 30 Mg Capsule.dr, 30 MG PO BID, CAP 03/02/14 Scheduled Amlodipine Besylate (Amlodipine Besylate), 10 MG PO DAILY Carvedilol (Carvedilol ), 12.5 MG PO BIDWMEALS Duloxetine Hcl (Cymbalta), 30 MG PO BID, (Reported) Esomeprazole Magnesium (Nexium Capsule), 20 MG PO DAILYAC, (Reported) Lisinopril (Lisinopril), 40 MG PO DAILY Oxycodone HCl (Oxycontin), 10 MG PO Q12HR Scheduled PRN Alprazolam (Alprazolam), 0.25 MG PO PRN Q8HRS PRN for ANXIETY / AGITATION Oxycodone/Apap 5-325 (Percocet 5-325 Mg Tablet ), 1 TAB PO PRN Q6HRS PRN for SEVERE PAIN Miscellaneous Medications Multivitamins-Min/Fa/Ginkgo (One Daily For Women 50+ Adv Tb), 1 EACH PO, (Reported) Total Time: Total Time: 33 minutes ITA ALONSO III DO Jan 08, 2019 12:48
[2019-01-08] MEDS ORDERED: PROPOFOL 20 ML IV ONE (13:18)
--- NOTE | 2019-01-08 13:38 | PDOC4 ---
Operative Note Operative Note EGD with bolus removal with snare Meds propofol per anesthesia Pre-op dx dysphagia/esophageal stricture Post op dx hiatal hernia esophageal stricture s/p food bolus removal JOSH HILLS MD Jan 08, 2019 13:38
--- NOTE | 2019-01-08 14:57 | NUR ---
pt returned to unit at 1415 in stable condition. pt is requesting food at this time. pt states she feels better and not complaining of any pain. pt is alert and oriented and has call light within reach. pt is set up on frequent vital signs and is anxious for discharge later this afternoon. will continue to monitor. Addendum: 01/08/19 at 1501 by CHIDI MENSAH RN RN received report from NIALL Bryant from outpatient
[2019-01-08 15:30] VITALS: BP 179/76
--- NOTE | 2019-01-08 19:44 | NUR ---
pt is discharged home with self care at 1655 via ambulation via JAY Contreras. pt is in stable condition. pt has all belongings with her. pt received discharge instructions and stated she had no further questions for me.
== END 2019-01-08 16:55 | disposition home or self-care (01) ==
LOC: ER 02:40 → 4 NORTH 04:43
PROVIDERS: ADMIT Internal Medicine; ATTEND Internal Medicine
PROC: 0DC58ZZ Extirpation of Matter from Esophagus, Via Natural or Artificial Opening Endoscopic (ICD-10-PCS; principal; 2019-01-08 14:00)
DX: T18.128A Food in esophagus causing other injury, initial encounter (principal); K21.9 Gastro-esophageal reflux disease without esophagitis; K44.9 Diaphragmatic hernia without obstruction or gangrene; K22.2 Esophageal obstruction; I10 Essential (primary) hypertension; X58.XXXA Exposure to other specified factors, initial encounter; Y93.89 Activity, other specified; Y92.89 Other specified places as the place of occurrence of the external cause; Y99.8 Other external cause status; Z90.710 Acquired absence of both cervix and uterus; Z82.49 Family history of ischemic heart disease and other diseases of the circulatory system
CPT/HCPCS: 36415; 43247; 80053; 85025; 85610; 96374; 96375; 96376; 99284; C9113; G0378; J1610; J2060; J2270; J2405; J2704; J3010; J7030; G0379

== ENCOUNTER → 2019-01-28 | Day surgery (SDC) | payer MEDICARE ==
[~2019-01-28] MED LIST changes: +IV RINGERS,LACTATED 1000ML 1,000 ML IV SCH; -PANT40TA3 PO; +PANT40TA77 PO; +PROPOFOL 20 ML IV ONE
[2019-01-28 09:25] VITALS: BP 130/70
== END ==
LOC: ENDOS 06:28
PROVIDERS: ATTEND Internal Medicine Gastroenterology
DX: K22.2 Esophageal obstruction (principal); K44.9 Diaphragmatic hernia without obstruction or gangrene; I10 Essential (primary) hypertension; K21.9 Gastro-esophageal reflux disease without esophagitis; F32.9 Major depressive disorder, single episode, unspecified; E78.5 Hyperlipidemia, unspecified; Z86.010 Personal history of colon polyps; Z90.49 Acquired absence of other specified parts of digestive tract; Z90.710 Acquired absence of both cervix and uterus
CPT/HCPCS: 43235; 43450; J2704

== ENCOUNTER → 2019-02-09 | Outpatient (CLI) | payer MEDICARE ==
[2019-01-28 09:25] VITALS: BP 130/70
[~2019-02-09] MED LIST changes: -IV RINGERS,LACTATED 1000ML 1,000 ML IV SCH; -PROPOFOL 20 ML IV ONE
--- NOTE | 2019-02-09 14:40 | RAD ---
DATE: 02/09/2019. EXAM: MAMMO OMAR SCREENING BILATERAL HISTORY: Routine screening. COMPARISON: Previous mammogram from 2013 and 2016. This study was interpreted with the benefit of Computerized Aided Detection (CAD). FINDINGS: Breast Density: SCATTERED The breast parenchyma shows scattered fibroglandular densities. Breast parenchyma level B. The skin and nipples are within normal limits. Stable left breast upper-outer quadrant focal asymmetry. No suspicious calcifications. IMPRESSION: No mammographic evidence of malignancy. Stable mammogram. BI-RADS CATEGORY: 2 BENIGN FINDING(S) RECOMMENDED FOLLOW-UP: 12M 12 MONTH FOLLOW-UP PQRS compliance statement: Patient information was entered into a reminder system with a target due date for the next mammogram. Mammography is a sensitive method for finding small breast cancers, but it does not detect them all and is not a substitute for careful clinical examination. A negative mammogram does not negate a clinically suspicious finding and should not result in delay in biopsying a clinically suspicious abnormality. "Our facility is accredited by the [employer] Mammography Program."
== END | disposition home or self-care (01) ==
LOC: MAMMO 13:34
PROVIDERS: ATTEND Nurse Practitioner Family
DX: Z12.31 Encounter for screening mammogram for malignant neoplasm of breast (principal); N64.89 Other specified disorders of breast
CPT/HCPCS: 77063; 77067

== ENCOUNTER 2019-05-09 10:31 | Emergency (ER) | payer MEDICARE ==
[~2019-05-09] VITALS: Ht 165.1 cm; Wt 97.1 kg
[2019-05-09] MEDS ORDERED: GLUCAGON,HUMAN RECOMBINANT 1 MG/ML VIAL. IV ONE (11:00)
[2019-05-09] MEDS ORDERED: ONDANSETRON PF 4 MG/2 ML VIAL. IVP ONE (11:00)
[2019-05-09] MEDS ORDERED: IV NORMAL SALINE 1000ML BAG 1,000 ML IV ONE (11:00)
[2019-05-09] MEDS ORDERED: MORPHINE SULFATE 10 MG/ML VIAL. IV ONE (11:00)
--- NOTE | 2019-05-09 11:09 | PHYS DOC ---
Past Medical History Past Medical History: GERD, Hypertension Additional Past Medical Histor: FOOD BOLUSES STRICTURE,PE,Heart Murmur (LASHAUN RICHARDSON APRN) Past Surgical History: Other Additional Past Surgical Histo: ESPHOGUS DILATION, LT ANKLE, RT ROTATOR CUFF,HAND (LASHAUN RICHARDSON APRN) Alcohol Use: Occasionally Drug Use: None (LASHAUN RICHARDSON APRN) Attending Signature I have participated in the care of this patient and I have reviewed and agree with all pertinent clinical information above including history, exam, and recommendations. (KINGSTON BISHOP MD) Adult General Chief Complaint Chief Complaint: OTHER COMPLAINTS HPI HPI Patient is a 73 year old with history of hypertension, acid reflux, esophageal strictures with food boluses, who presents to the ED today complaining of inability to swallow due to food bolus that occurred yesterday at 4:30 PM when she had shrimp for dinner. Patient states she did fine after dinner then this morning she woke up and she was unable to swallow her medications. She believes a piece of shrimp is stuck in her throat. Denies any difficulty breathing. She states she normally has to go to GI lab for scope and removal of this removal food bolus. (LASHAUN RICHARDSON APRN) Review of Systems Review of Systems Constitutional: Denies fever or chills [] Eyes: Denies change in visual acuity, redness, or eye pain [] HENT: Reports food bolus. Denies nasal congestion or sore throat [] Respiratory: Denies cough or shortness of breath [] Cardiovascular: No additional information not addressed in HPI [] GI: Denies abdominal pain, nausea, vomiting, bloody stools or diarrhea [] : Denies dysuria or hematuria [] Musculoskeletal: Denies back pain or joint pain [] Integument: Denies rash or skin lesions [] Neurologic: Denies headache, focal weakness or sensory changes [] All other systems were reviewed and found to be within normal limits, except as documented in this note. (LASHAUN RICHARDSON APRN) Current Medications Current Medications Current Medications Medications (Trade) Dose Ordered Sig/Micheline Start Time Stop Time Status Last Admin Dose Admin Fentanyl Citrate (Fentanyl 2ml Vial) 50 mcg PRN Q5MIN PRN 05/09/19 12:15 05/09/19 19:00 DC Glucagon (Glucagen) 1 mg 1X ONCE 05/09/19 11:00 10/12/19 11:01 DC 05/09/19 11:06 1 MG Hydromorphone HCl (Dilaudid) 0.5 mg PRN Q10MIN PRN 05/09/19 12:15 05/09/19 19:00 DC Labetalol HCl (Normodyne Iv Push) 10 mg 1X ONCE 05/09/19 11:30 05/09/19 11:31 DC 05/09/19 11:35 10 MG Lidocaine HCl (Xylocaine-Mpf 1% 2ml Vial) 2 ml PRN 1X PRN 05/09/19 12:15 05/09/19 19:00 DC Morphine Sulfate (Morphine Sulfate) 1 mg PRN Q10MIN PRN 05/09/19 12:15 05/09/19 19:00 DC Ondansetron HCl (Zofran) 4 mg PRN Q6HRS PRN 05/09/19 12:15 05/09/19 19:00 DC Prochlorperazine Edisylate (Compazine) 5 mg PACU PRN PRN 05/09/19 12:15 05/09/19 19:00 DC Propofol 40 ml @ As Directed STK-MED ONCE 05/09/19 13:00 05/09/19 13:00 DC Ringer's Solution 1,000 ml @ 75 mls/hr 1X ONCE 05/09/19 13:00 05/10/19 02:19 DC 05/09/19 12:20 75 MLS/HR Sodium Chloride 1,000 ml @ 100 mls/hr 1X ONCE 05/09/19 11:00 05/09/19 20:59 DC 05/09/19 11:06 100 MLS/HR (KINGSTON BISHOP MD) Allergies Allergies Allergies Coded Allergies Type Severity Reaction Last Updated Verified No Known Drug Allergies 01/28/19 No (KINGSTON BISHOP MD) Physical Exam Physical Exam Constitutional: Well developed, well nourished, no acute distress, non-toxic appearance. [] HENT: Normocephalic, atraumatic, bilateral external ears normal, oropharynx moist, no oral exudates, nose normal. Airway is open, patient currently tolerating her secretions. Eyes: PERRLA, EOMI, conjunctiva normal, no discharge. [] Neck: Normal range of motion, no tenderness, supple, no stridor. [] Cardiovascular:Heart rate regular rhythm, no murmur [] Lungs & Thorax: Bilateral breath sounds clear to auscultation [] Abdomen: Bowel sounds normal, soft, no tenderness, no masses, no pulsatile mass es. [] Skin: Warm, dry, no erythema, no rash. [] Back: No tenderness, no CVA tenderness. [] Extremities: No tenderness, no cyanosis, no clubbing, ROM intact, no edema. [] Neurologic: Alert and oriented X 3, normal motor function, normal sensory function, no focal deficits noted. [] Psychologic: Affect normal, judgement normal, mood normal. [] (LASHAUN RICHARDSON APRN) Current Patient Data Vital Signs Vital Signs Date Time Temp Pulse Resp B/P (MAP) Pulse Ox O2 Delivery O2 Flow Rate FiO2 05/09/19 13:29 86 20 132/56 91 Room Air 05/09/19 13:16 97.7 3 97.7 (KINGSTON BISHOP MD) Lab Values Laboratory Tests Test 05/09/19 11:00 White Blood Count 5.9 x10^3/uL (4.0-11.0) Red Blood Count 4.26 x10^6/uL (3.50-5.40) Hemoglobin 12.9 g/dL (12.0-15.5) Hematocrit 37.3 % (36.0-47.0) Mean Corpuscular Volume 88 fL (79-100) Mean Corpuscular Hemoglobin 30 pg (25-35) Mean Corpuscular Hemoglobin Concent 35 g/dL (31-37) Red Cell Distribution Width 13.3 % (11.5-14.5) Platelet Count 306 x10^3/uL (140-400) Neutrophils (%) (Auto) 63 % (31-73) Lymphocytes (%) (Auto) 30 % (24-48) Monocytes (%) (Auto) 6 % (0-9) Eosinophils (%) (Auto) 1 % (0-3) Basophils (%) (Auto) 0 % (0-3) Neutrophils # (Auto) 3.7 x10^3/uL (1.8-7.7) Lymphocytes # (Auto) 1.8 x10^3/uL (1.0-4.8) Monocytes # (Auto) 0.4 x10^3/uL (0.0-1.1) Eosinophils # (Auto) 0.0 x10^3/uL (0.0-0.7) Basophils # (Auto) 0.0 x10^3/uL (0.0-0.2) Sodium Level 142 mmol/L (136-145) Potassium Level 4.1 mmol/L (3.5-5.1) Chloride Level 102 mmol/L (98-107) Carbon Dioxide Level 26 mmol/L (21-32) Anion Gap 14 (6-14) Blood Urea Nitrogen 15 mg/dL (7-20) Creatinine 0.9 mg/dL (0.6-1.0) Estimated GFR (Cockcroft-Gault) 61.5 BUN/Creatinine Ratio 17 (6-20) Glucose Level 148 mg/dL (70-99) H Calcium Level 9.4 mg/dL (8.5-10.1) Total Bilirubin 0.5 mg/dL (0.2-1.0) Aspartate Amino Transferase (AST) 18 U/L (15-37) Alanine Aminotransferase (ALT) 18 U/L (14-59) Alkaline Phosphatase 92 U/L (46-116) Total Protein 7.6 g/dL (6.4-8.2) Albumin 4.2 g/dL (3.4-5.0) Albumin/Globulin Ratio 1.2 (1.0-1.7) Laboratory Tests 05/09/19 11:00 Laboratory Tests 05/09/19 11:00 (KINGSTON BISHOP MD) Lab Values Laboratory Tests Test 05/09/19 11:00 White Blood Count 5.9 x10^3/uL (4.0-11.0) Red Blood Count 4.26 x10^6/uL (3.50-5.40) Hemoglobin 12.9 g/dL (12.0-15.5) Hematocrit 37.3 % (36.0-47.0) Mean Corpuscular Volume 88 fL (79-100) Mean Corpuscular Hemoglobin 30 pg (25-35) Mean Corpuscular Hemoglobin Concent 35 g/dL (31-37) Red Cell Distribution Width 13.3 % (11.5-14.5) Platelet Count 306 x10^3/uL (140-400) Neutrophils (%) (Auto) 63 % (31-73) Lymphocytes (%) (Auto) 30 % (24-48) Monocytes (%) (Auto) 6 % (0-9) Eosinophils (%) (Auto) 1 % (0-3) Basophils (%) (Auto) 0 % (0-3) Neutrophils # (Auto) 3.7 x10^3/uL (1.8-7.7) Lymphocytes # (Auto) 1.8 x10^3/uL (1.0-4.8) Monocytes # (Auto) 0.4 x10^3/uL (0.0-1.1) Eosinophils # (Auto) 0.0 x10^3/uL (0.0-0.7) Basophils # (Auto) 0.0 x10^3/uL (0.0-0.2) Sodium Level 142 mmol/L (136-145) Potassium Level 4.1 mmol/L (3.5-5.1) Chloride Level 102 mmol/L (98-107) Carbon Dioxide Level 26 mmol/L (21-32) Anion Gap 14 (6-14) Blood Urea Nitrogen 15 mg/dL (7-20) Creatinine 0.9 mg/dL (0.6-1.0) Estimated GFR (Cockcroft-Gault) 61.5 BUN/Creatinine Ratio 17 (6-20) Glucose Level 148 mg/dL (70-99) H Calcium Level 9.4 mg/dL (8.5-10.1) Total Bilirubin 0.5 mg/dL (0.2-1.0) Aspartate Amino Transferase (AST) 18 U/L (15-37) Alanine Aminotransferase (ALT) 18 U/L (14-59) Alkaline Phosphatase 92 U/L (46-116) Total Protein 7.6 g/dL (6.4-8.2) Albumin 4.2 g/dL (3.4-5.0) Albumin/Globulin Ratio 1.2 (1.0-1.7) Laboratory Tests 05/09/19 11:00 Laboratory Tests 05/09/19 11:00 (LASHAUN RICHARDSON APRN) EKG EKG [] (LASHAUN RICHARDSON APRN) Radiology/Procedures Radiology/Procedures [] (LASHAUN RICHARDSON APRN) Course & Med Decision Making Course & Med Decision Making Pertinent Labs and Imaging studies reviewed. (See chart for details) This is a 73-year-old female patient presenting to the ED today complaining of football last, patient believes a piece of shrimp is stuck in her throat since yesterday at 4:30 PM. Currently airway is open tolerating secretions but insisting she needs to go to GI lab for removal of food bolus. 1114 answering service tried to connect me to Dr. Cochran but he did not answer the phone call. [address] Cochran he will take patient to GI lab for removal of foreign object. Patient is going to GI lab right now (LASHAUN RICHARDSON APRN) Dragon Disclaimer Dragon Disclaimer This electronic medical record was generated, in whole or in part, using a voice recognition dictation system. (LASHAUN RICHARDSON APRN) Departure Departure Impression: Primary Impression: Food impaction of esophagus Disposition: ADMITTED INPATIENT Condition: STABLE Referrals: RAQUEL WILSON CONCERT PROMOTER (PCP) Problem Qualifiers Primary Impression: Food impaction of esophagus Encounter type: initial encounter Qualified Codes: T18.128A - Food in esophagus causing other injury, initial encounter LASHAUN RICHARDSON APRN May 09, 2019 11:09 KINGSTON BISHOP MD May 10, 2019 06:15
[2019-05-09 11:14] LABS: BASO % 0 % (0-3); EOS % 1 % (0-3); HEMATOCRIT 37.3 % (36.0-47.0); HEMOGLOBIN 12.9 g/dL (12.0-15.5); LYMPH # 1.8 x10^3/uL (1.0-4.8); LYMPH % 30 % (24-48); MEAN CORPUSCULAR HEMOGLOBIN 30 pg (25-35); MEAN CORPUSCULAR HGB CONC 35 g/dL (31-37); MEAN CORPUSCULAR VOLUME 88 fL (79-100); MONO # 0.4 x10^3/uL (0.0-1.1); MONO % 6 % (0-9); NEUT # 3.7 x10^3/uL (1.8-7.7); NEUT % 63 % (31-73); PLATELET COUNT 306 x10^3/uL (140-400); RED BLOOD COUNT 4.26 x10^6/uL (3.50-5.40); RED CELL DISTRIBUTION WIDTH 13.3 % (11.5-14.5); WHITE BLOOD COUNT 5.9 x10^3/uL (4.0-11.0)
[2019-05-09 11:21] LABS: CALCIUM 9.4 mg/dL (8.5-10.1); CREATININE 0.9 mg/dL (0.6-1.0); GFR 61.5; POTASSIUM 4.1 mmol/L (3.5-5.1)
[2019-05-09 11:27] LABS: ALBUMIN 4.2 g/dL (3.4-5.0); ALBUMIN/GLOBULIN RATIO 1.2 (1.0-1.7); TOTAL BILIRUBIN 0.5 mg/dL (0.2-1.0); TOTAL PROTEIN 7.6 g/dL (6.4-8.2)
[2019-05-09] MEDS ORDERED: LABETALOL 20 MG/4 ML DISP.SYRIN. IVP ONE (11:30)
[2019-05-09] MEDS ORDERED: PROPOFOL 20 ML IV ONE (12:07)
[2019-05-09] MEDS ORDERED: HYDROmorphone 2 MG/ML VIAL IV PRN (12:15)
[2019-05-09] MEDS ORDERED: ONDANSETRON PF 4 MG/2 ML VIAL. IV PRN (12:15)
[2019-05-09] MEDS ORDERED: MORPHINE SULFATE 2 MG/ML VIAL. IV PRN (12:15)
[2019-05-09] MEDS ORDERED: LIDOCAINE 1% PF 2 ML VIAL. ID PRN (12:15)
[2019-05-09] MEDS ORDERED: PROCHLORPERAZINE 10 MG/2 ML VIAL. IV PRN (12:15)
[2019-05-09] MEDS ORDERED: fentaNYL PF VIAL 100 MCG/2 ML VIAL IV PRN ×2 (12:15)
[2019-05-09] MEDS ORDERED: IV RINGERS,LACTATED 1000ML 1,000 ML IV SCH (12:30)
[2019-05-09] MEDS ORDERED: PROPOFOL 40 ML IV ONE (13:00)
[2019-05-09] MEDS ORDERED: IV RINGERS,LACTATED 1000ML 1,000 ML IV ONE (13:00)
[2019-05-09 13:29] VITALS: BP 132/56
--- NOTE | 2019-05-09 15:43 | CONS ---
DATE OF CONSULTATION: 05/09/2019 GASTROENTEROLOGY CONSULTATION REFERRING PHYSICIAN: Chloe Dubois APRN REASON FOR CONSULTATION: Dysphagia, meat impaction with shrimp. HISTORY OF PRESENT ILLNESS: This is a 73-year-old female whose past medical history is significant for pneumonia, dysphagia, and hypertension, seen with recurrent dysphagia. She had been dilated multiple times in the past due to the edentulous state, food intermittently gets stuck. She is here today with a repeat impaction for disimpaction. ALLERGIES: None. MEDICATIONS: Per MAR. SOCIAL HISTORY: She does not drink or smoke. She is . FAMILY HISTORY: Noncontributory. REVIEW OF SYSTEMS: Per records. PHYSICAL EXAMINATION: GENERAL: Reveals a well-nourished, well-developed female. VITAL SIGNS: Temperature is 97.9, pulse 66, respiratory rate 20, blood pressure 116/64. HEENT: Normocephalic, atraumatic head. Pupils and extraocular muscles are not tested. Sclerae are anicteric. NECK: Supple. LUNGS: Clear. CARDIOVASCULAR: Reveals S1 and S2 without S3, S4, or appreciable murmur. ABDOMEN: Soft abdomen, normal bowel sounds, without appreciable hepatosplenomegaly. EXTREMITIES: No cyanosis, clubbing, or edema. IMPRESSION AND PLAN: Dysphagia with history of meat impaction. We recommend EGD with foreign body extraction. Risks and benefits have been discussed with the patient including risk of perforation and she is willing to proceed. JOSH HILLS MD DR: CINTHIA/jose JOB#: [id number] / [id number] UMBERTO Wilks MD
== END 2019-05-09 12:05 | disposition home or self-care (01) ==
LOC: ER 10:31
DX: T18.128A Food in esophagus causing other injury, initial encounter (principal); K21.9 Gastro-esophageal reflux disease without esophagitis; I10 Essential (primary) hypertension; X58.XXXA Exposure to other specified factors, initial encounter; Y93.89 Activity, other specified; Y92.89 Other specified places as the place of occurrence of the external cause; Y99.8 Other external cause status
CPT/HCPCS: 36415; 43247; 80053; 85025; 96361; 96374; 96375; 99284; C1757; J1610; J2270; J2405; J2704; J3490; J7030; J7120

== ENCOUNTER 2019-06-05 08:13 | Emergency (ER) | payer MEDICARE ==
[~2019-06-05] VITALS: Ht 165.1 cm; Wt 97.1 kg
[~2019-06-05 08:13] MED LIST changes: +SIMV10TA15 PO; -SIMV10TA3 PO; +SIMV20TA18 PO; -SIMV20TA3 PO
--- NOTE | 2019-06-05 08:59 | PHYS DOC ---
Past Medical History Past Medical History: Depression, Fibromyalgia, GERD, High Cholesterol, H ypertension Additional Past Medical Histor: FOOD BOLUSES STRICTURE,PE,Heart Murmur Past Surgical History: Other Additional Past Surgical Histo: ESPHOGUS DILATION, LT ANKLE, RT ROTATOR CUFF,H AND Alcohol Use: Occasionally Drug Use: None Adult General Chief Complaint Chief Complaint: BACK PAIN - NO INJURY HPI HPI Patient is a 74 year old female who presented to ER today for evaluation of right side back pain, right side chest pain started 2 days ago. Patient felt like she pulled her muscle her back. She denies any injury, no fall, no cough, no fever. Patient said the pain worse with any movement of her chest or shoulder, worse with cough or deep breathing. Patient has history of fibromyalgia. Patient denies any chest pain, no trouble breathing, no abdominal pain, no fever. She does have history of chronic pain syndrome. All other ROS is negative unless otherwise noted in HPI Review of Systems Review of Systems See above Current Medications Current Medications Current Medications Medications (Trade) Dose Ordered Sig/Micheline Start Time Stop Time Status Last Admin Dose Admin Acetaminophen/ Hydrocodone Bitart (Lortab 5/325) 2 tab 1X ONCE 06/05/19 09:30 06/05/19 09:31 DC 06/05/19 09:29 2 TAB Allergies Allergies Allergies Coded Allergies Type Severity Reaction Last Updated Verified No Known Drug Allergies 01/28/19 No Physical Exam Physical Exam See above Constitutional: Well developed, well nourished, no acute distress, non-toxic appearance. [] HENT: Normocephalic, atraumatic, bilateral external ears normal, oropharynx moist, no oral exudates, nose normal. [] Eyes: PERRLA, EOMI, conjunctiva normal, no discharge. [] Neck: Normal range of motion, no tenderness, supple, no stridor. [] Cardiovascular:Heart rate regular rhythm, no murmur [] Lungs & Thorax: Bilateral breath sounds clear to auscultation. RIGHT SIDE CHEST AND RIGHT SCAPULAR AREA WERE TENDER TO PALPATION. NO RASH, NO CREPITUS, NO BRUISE. Abdomen: Bowel sounds normal, soft, no tenderness, no masses, no pulsatile mass es. [] Skin: Warm, dry, no erythema, no rash. [] Back: No tenderness, no CVA tenderness. [] Extremities: No tenderness, no cyanosis, no clubbing, ROM intact, no edema. [] Neurologic: Alert and oriented X 3, normal motor function, normal sensory function, no focal deficits noted. [] Psychologic: Affect normal, judgement normal, mood normal. [] Current Patient Data Vital Signs Vital Signs Date Time Temp Pulse Resp B/P (MAP) Pulse Ox O2 Delivery O2 Flow Rate FiO2 06/05/19 09:29 20 06/05/19 08:34 97.8 72 173/76 (108) 98 Room Air 97.8 EKG EKG EKG was read by this physician as 0834, normal sinus rhythm, rate of 68 BPM, No STEMI. Radiology/Procedures Radiology/Procedures [][facility] [address] [place], [place] [id number] IMAGING REPORT Signed PATIENT: EMERSON RODRIGUEZ MACCOUNT: [id number] : 1945 LOCATION: ER AGE: 74 SEX: F EXAM STATUS: REG ER ORD. PHYSICIAN: SHARMAINE LORENZO DO REASON: right side ribs pain for 2 days, no injury PROCEDURE: RIBS RIGHT AND PA CHEST Two-view right rib detail series and PA view chest x-ray Clinical indications: Right-sided rib pain for 2 days. No known injury. FINDINGS: No acute right rib fracture or lytic process is seen. COMPARISON: Chest x-ray dated July 27, 2018. Chest x-ray demonstrates no acute lung infiltrate or pleural effusion or pulmonary edema or pneumothorax or lung mass. The heart size is at the upper limits of normal. A hiatal hernia is present. Otherwise the mediastinum and pulmonary vasculature and both ashwin are unremarkable. IMPRESSION: No acute right rib fracture. Hiatal hernia. No acute lung infiltrate. Electronically signed by: Blake Bonilla MD (06/05/2019 9:13 AM) [facility] DICTATED and SIGNED BY: BLAKE BONILLA MD DATE: 06/05/19912 Course & Med Decision Making Course & Med Decision Making Pertinent Labs and Imaging studies reviewed. (See chart for details) [] Dragon Disclaimer Dragon Disclaimer This electronic medical record was generated, in whole or in part, using a voice recognition dictation system. Departure Departure Impression: Primary Impression: Thoracic back pain Disposition: HOME, SELF-CARE Condition: STABLE Referrals: RAQUEL WILSON BONDING MACHINE SETTER (PCP) Patient Instructions: Thoracic Outlet Syndrome-Brief Scripts Tramadol Hcl (TRAMADOL HCL) 50 Mg Tablet 50 MG PO Q6HRS PRN for PAIN, #15 TAB Prov: SHARMAINE LORENZO DO 06/05/19 SHARMAINE LORENZO DO Jun 05, 2019 08:59
--- NOTE | 2019-06-05 09:16 | RAD ---
Two-view right rib detail series and PA view chest x-ray Clinical indications: Right-sided rib pain for 2 days. No known injury. FINDINGS: No acute right rib fracture or lytic process is seen. COMPARISON: Chest x-ray dated July 27, 2018. Chest x-ray demonstrates no acute lung infiltrate or pleural effusion or pulmonary edema or pneumothorax or lung mass. The heart size is at the upper limits of normal. A hiatal hernia is present. Otherwise the mediastinum and pulmonary vasculature and both ashwin are unremarkable. IMPRESSION: No acute right rib fracture. Hiatal hernia. No acute lung infiltrate. Electronically signed by: Douglas Bonilla MD (06/05/2019 9:13 AM) [facility]
[2019-06-05 09:28] VITALS: BP 148/67
[2019-06-05] MEDS ORDERED: HYDROcodone/APAP 5/325MG 1 TAB TABLET PO ONE (09:30)
[2019-06-05] MEDS ORDERED: TRAM50TA PO (09:43)
--- NOTE | 2019-06-05 13:35 | EKG ---
[facility] [address] [place] [address] Test Date: 2019-06-05 Test Time: 08:30:45 Pat Name: EMERSON RODRIGUEZ Department: Room: Gender: F Supervisor [employer] Dressing: : 1945 Requested By: SHARMAINE LORENZO Order Number: [id number] Reading MD: Measurements Intervals Jackson Rate: 68 P: -145 SC: 160 QRS: 0 QRSD: 86 T: 31 QT: 372 QTc: 400 Interpretive Statements SINUS RHYTHM LEFTWARD AXIS OTHERWISE NORMAL ECG No previous ECG available for comparison
== END 2019-06-05 10:00 | disposition home or self-care (01) ==
LOC: ER 08:13
DX: M54.6 Pain in thoracic spine (principal); R07.89 Other chest pain; M79.7 Fibromyalgia; K21.9 Gastro-esophageal reflux disease without esophagitis; E78.00 Pure hypercholesterolemia, unspecified; I10 Essential (primary) hypertension
CPT/HCPCS: 71101; 93005; 99284

== ENCOUNTER → 2020-03-01 | Outpatient (CLI) | payer MEDICARE ==
[~2020-03-01] MED LIST changes: -CETI10TA22 PO; +CETI10TA24 PO; +TRAM50TA PO
--- NOTE | 2020-03-01 13:29 | RAD ---
DATE: 03/01/2020 9:00 AM EXAM: MAMMO OMAR SCREENING BILATERAL HISTORY: Screening COMPARISON: 08/23/2015, 02/09/2019 Bilateral CC and MLO views of the breasts were performed. Bilateral breast tomosynthesis was performed in CC and MLO projections. This study was interpreted with the benefit of Computerized Aided Detection (CAD). FINDINGS: Breast Density: SCATTERED The breast parenchyma shows scattered fibroglandular densities. Breast parenchyma level B No suspicious masses, microcalcifications or architectural distortion is present to suggest malignancy in either breast. The visualized axillae are unremarkable. IMPRESSION: No mammographic evidence of malignancy. BI-RADS CATEGORY: 1 NEGATIVE RECOMMENDED FOLLOW-UP: 12M 12 MONTH FOLLOW-UP Annual screening mammography is recommended, unless clinically indicated sooner based on symptoms or change in physical exam. PQRS compliance statement: Patient information was entered into a reminder system with a target due date 03/02/2021 for the next mammogram. Mammography is a sensitive method for finding small breast cancers, but it does not detect them all and is not a substitute for careful clinical examination. A negative mammogram does not negate a clinically suspicious finding and should not result in delay in biopsying a clinically suspicious abnormality. "Our facility is accredited by the [employer] Mammography Program."
== END | disposition home or self-care (01) ==
LOC: MAMMO 08:50
PROVIDERS: ATTEND Family Medicine
DX: Z12.31 Encounter for screening mammogram for malignant neoplasm of breast (principal)
CPT/HCPCS: 77063; 77067